=== PATIENT | female | born 1985 | race Caucasian/White ===

== ENCOUNTER 2021-02-20 | Outpatient (REF) | payer OTHER, MEDICAID, SELFPAY ==
[2021-02-20] VITALS (7 sets, daily range): BP systolic 97–129; BP diastolic 49–76; PULSE 64–99; RESP 17–19; TEMP 36.2–37.4; O2SAT 96–100; BMI 34.9
[2021-02-20 10:34] LABS: CSF Appearance Clear, Colorless; CSF Tube # 1
[2021-02-20 10:45] LABS: Glucose CSF 59 mg/dL; Total Protein CSF 26.6 mg/dL (15-45)
[2021-02-20 11:01] LABS: CSF Monos 4 %; Lymphocytes CSF 96 %
[2021-02-20 11:02] LABS: Appearance CSF CLEAR; CSF Tube # 3; Color CSF COLORLESS
[2021-02-20 11:08] LABS: Red Blood Cell CSF 0 MM*3; White Blood Cell CSF 20 MM*3
[2021-02-20 13:19] LABS: Oligoclonal Serum Yes
[2021-02-24 04:07] LABS: Albumin 3.8 g/dL (3.5-5.2); Albumin, CSF 11.1 mg/dL (8.0-42.0); IgG 838 mg/dL (600-1640); IgG Synthesis Rate 25.2 mg/24 h (-9.9-3.3); IgG, CSF 6.8 mg/dL (0.8-7.7)
== END 2021-02-20 00:01 | disposition home or self-care (01) ==
LOC: HO.MS
PROVIDERS: PCP Internal Medicine; Visit Provider Psychiatry & Neurology Neurology
PROC: 009U3ZZ Drainage of Spinal Canal, Percutaneous Approach (ICD-10-PCS; CPT 62270; principal; 2021-02-20 08:00)
DX: R29.90 Unspecified symptoms and signs involving the nervous system (principal); Z88.0 Allergy status to penicillin
CPT/HCPCS: 62270; 82042; 82945; 83916; 84157; 87015; 87070; 87205; 89051

== ENCOUNTER 2023-04-29 08:35 | Outpatient (REF) | payer OTHER, MEDICAID, SELFPAY | END 2023-04-29 08:36 | disposition home or self-care (01) | LOC: HO.HAP 08:35 | PROVIDERS: Visit Provider Internal Medicine | DX: Z46.1 Encounter for fitting and adjustment of hearing aid (principal); H90.3 Sensorineural hearing loss, bilateral | CPT/HCPCS: 99499 ==

== ENCOUNTER 2023-09-03 08:58 | Outpatient (REF) | payer OTHER, MEDICAID, SELFPAY ==
--- NOTE | 2023-09-04 08:04 | MHC.AU.HA3 ---
Hearing Instrument Follow-Up- Binaural Date of Visit: 09/03/23 Right Ear: Make, Model, Color, Serial Number: Ellen Whittingtona2Pro BTE SN: [id number] Color: [place] Brown Battery Size: 13 Earmold/Dome/CShell/SlimTip:Canal lock Dispensed By: [facility] Date of Fittin Left Ear: Make, Model, Color, Serial Number: Ellen Whittingtona2Pro BTE SN: [id number] Color: [place] Brown Battery Size: 13 Earmold/Dome/CShell/SlimTip: Canal lock Dispensed By: [facility] Date of Fittin Follow-Up Summary: Kylah reported that her right ear mold keeps sliding out of her ear. Tubing slightly too short, likely pulling on ear mold. Cleaned both hearing aids and ear molds. Microphones full of debris - cleaned/vacuumed. Replaced both tubes. Kylah also requested an increase in volume of the hearing aids. However, while making programming adjustments, the left hearing aid continually cut in and out. Confirmed via listening check. Right volume control also does not work. Discussed repair vs replace due to age. Kylah opted to send the left hearing aid for repair at this time. Quoted $385.00 due at cherry picker operator. Programmed loaner. Kylah is trying to fix her [place] [employer] insurance. Once that is settled, she will start the process for new hearing aids, starting with a doctor's order for an updated hearing test. Recommendations: Patient will be contacted when materials have arrived. Recommendations (Other): Will need appointment to transfer ear mold from loaner to repaired hearing aid and reconnect via Genie to right hearing aid. Will owe $385.00 at cherry picker operator Diagnosis Code(s): Primary Diagnosis: H90.3 Bilateral Sensorineural Hearing Loss Signature: Provider: Lucein Cisneros, [facility]
== END 2023-09-03 08:59 | disposition home or self-care (01) ==
LOC: HO.HAP 08:58
PROVIDERS: Visit Provider Internal Medicine
DX: Z13.89 Encounter for screening for other disorder (principal)

== ENCOUNTER 2023-10-06 09:31 | Outpatient (REF) | payer OTHER, MEDICAID, SELFPAY ==
[2023-10-06 10:18] LABS: Hematocrit 43.3 % (37.0-47.0); Hemoglobin 14.5 g/dl (12.0-16.0); Mean Corpuscular HGB Conc 33.5 g/dl (31.0-35.0); Mean Corpuscular Hemoglobin 28.2 pg (27.0-33.0); Mean Corpuscular Volume 84.2 fL (80.0-98.0); Mean Platelet Volume 8.9 fL (9.4-12.3); Platelet Count 310 X10*3/uL (160-400); Red Blood Count 5.14 X10*6/uL (4.20-5.50); Red Cell Distribution Width 13.2 % (11.0-16.0)
[2023-10-06 11:06] LABS: Alanine Aminotransferase 15 U/L (0-31); Alkaline Phosphatase 71 U/L (39-117); Aspartate Amino Transferase 16 U/L (5-31); Bilirubin Direct 0.1 mg/dL (0.0-0.5); Bilirubin Total 0.4 mg/dL (0.0-1.0); Total Protein 7.1 g/dL (6.5-8.0)
== END 2023-10-06 09:32 | disposition home or self-care (01) ==
LOC: HO.LAB 09:31
PROVIDERS: PCP Internal Medicine; Visit Provider Psychiatry & Neurology Neurology
DX: G35 Multiple sclerosis (principal)
CPT/HCPCS: 36415; 80076; 85027

== ENCOUNTER 2023-10-12 08:38 | Outpatient (REF) | payer OTHER, MEDICAID, SELFPAY | END 2023-10-12 08:39 | disposition home or self-care (01) | LOC: HO.HAP 08:38 | PROVIDERS: Visit Provider Internal Medicine | DX: Z46.1 Encounter for fitting and adjustment of hearing aid (principal); H90.3 Sensorineural hearing loss, bilateral | CPT/HCPCS: V5014 ==

== ENCOUNTER 2023-11-10 09:11 | Outpatient (REF) | payer OTHER, MEDICAID, SELFPAY ==
[2023-11-10 10:53] LABS: Hematocrit 42.7 % (37.0-47.0); Mean Corpuscular HGB Conc 32.8 g/dl (31.0-35.0); Mean Corpuscular Hemoglobin 28.3 pg (27.0-33.0); Mean Corpuscular Volume 86.4 fL (80.0-98.0); Mean Platelet Volume 9.6 fL (9.4-12.3); Platelet Count 357 X10*3/uL (160-400); Red Blood Count 4.94 X10*6/uL (4.20-5.50); Red Cell Distribution Width 13.4 % (11.0-16.0); White Blood Count 9.5 X10*3/uL (4.8-10.8)
[2023-11-10 11:57] LABS: Alanine Aminotransferase 23 U/L (0-31); Alkaline Phosphatase 67 U/L (39-117); Aspartate Amino Transferase 23 U/L (5-31); Bilirubin Direct 0.1 mg/dL (0.0-0.5); Bilirubin Total 0.4 mg/dL (0.0-1.0)
== END 2023-11-10 09:12 | disposition home or self-care (01) ==
LOC: HO.LAB 09:11
PROVIDERS: Visit Provider Psychiatry & Neurology Neurology
DX: G35 Multiple sclerosis (principal)
CPT/HCPCS: 36415; 80076; 85027

== ENCOUNTER 2024-03-25 08:20 | Outpatient (REF) | payer OTHER, MEDICAID, SELFPAY ==
--- NOTE | 2024-03-25 09:14 | MHC.AU.MED ---
Medical Clearance for Hearing Instrumentation Date: 03/25/24 Patient Name: Kylah Mix Date of : 1985 Primary Care Provider: Gary Beard MD We have seen your patient on 03/25/24 and have determined that they are a candidate for amplification (See accompanying report). Specifically, they would benefit from: Hearing aid use in both ears There is a statute that addresses Medical Evaluation Requirements prior to fitting a patient with a hearing aid. According to [place] statute [facility] CMR:6.03(1), (a) General. Except as provided in 265 CMR 6.03(1)(b), a shearing shed worker shall not sell a hearing aid unless the prospective user has presented to the shearing shed worker a written statement signed by a licensed physician that states that the patient's hearing loss has been medically evaluated and the patient may be considered a candidate for a hearing aid. The medical evaluation must have taken place within the preceding six months. Please note: Due to the [place] Statute referenced above, we cannot accept a signature other than that of a licensed physician. STAND GRINDER and PA signatures cannot be accepted. I am in agreement with the above recommendation. There is no medical contraindication for hearing instrumentation. Physician Signature Date Physician Name (Printed)
--- NOTE | 2024-03-25 10:30 | MHC.AU.HA1 ---
Hearing Aid Evaluation Date of Visit: 03/25/24 Historical Information: Description of Hearing: Moderately-severe sensorineural hearing loss, bilaterally Current personal amplification information: Oticon Aaws4Xtl BTEs fit in 2017 Summary: Kylah is ready to pursue new hearing aids due to the age of her current pair. She reported the right hearing aid has been intermittent and she gets excessive feedback from both hearing aids, likely due to loose fitting ear molds. Kylah is somewhat concerned about vanity but also wants to hear as best as she can. Discussed options including changing to RITE with power project management specialist/mold or staying with standard BTE, however, would recommend super power BTE. Given that Kylah sleeps with one hearing, she opted to continue with standard, battery-powered BTEs for durability. Showed demo of size/shape of Oticon Xceed SP BTE, which was acceptable to Kylah. Impressions taken, bilaterally, without incident (in hold drawer waiting for medical clearance). Hearing Aid Prescription: Based on the individual?s shared listening needs, communication environments, dexterity, desire for connectivity, and personal preferences, the following prescription for amplification has been made: Right ear: Make, Model, Color: Oticon Xceed 2 BTE SP Color: Chroma Biege Battery Size: 13 Type of Earmold/Dome/CShell/SlimTip: MicronSonic M45 Canal lock Left ear: Left ear prescription to be same as Right Hearing Aid above: Make, Model, Color: Oticon Xceed 2 BTE SP Color: Chroma Biege Battery Size: 13 Type of Earmold/Dome/CShell/SlimTip: MicronSonic M45 Canal lock Plan of Care: Patient wishes to purchase hearing aids as prescribed Action Taken/Action Needed: Medical Clearance to be requested from PCP/ENT. Hearing Instrument Fitting to be scheduled when materials arrive Primary Diagnosis: H90.3 Bilateral Sensorineural Hearing Loss Signature: Provider: Lucien Cisneros, [facility]
== END 2024-03-25 08:21 | disposition home or self-care (01) ==
LOC: HO.SH 08:20
PROVIDERS: Visit Provider Internal Medicine
DX: Z46.1 Encounter for fitting and adjustment of hearing aid (principal); H90.3 Sensorineural hearing loss, bilateral
CPT/HCPCS: 92557; 92591; V5275

== ENCOUNTER 2024-05-23 10:49 | Outpatient (REF) | payer OTHER, MEDICAID, SELFPAY ==
--- NOTE | 2024-05-23 12:37 | MHC.AU.HA2 ---
Hearing Instrument Fitting- Adult- Binaural Date of Visit: 05/23/24 Hearing Instruments Dispensed: Right Ear: Make, Model, Color, Serial Number: Otmaria e Martinez 2 AVAE SP SN: [id number] Color: Chroma Biege Acid Dipper Repair Warranty: 05/06/2027 Acid Dipper Loss and Damage Warranty: 05/06/2027 [facility] Service Plan: 05/23/2025 Battery Size: 13 Earmold/Dome/CShell/SlimTip: MicronSonic M45 Canal lock Left Ear: Make, Model, Color, Serial Number: Ellen Martinez 2 BTE SP SN: [id number] Color: Chroma Biege Acid Dipper Repair Warranty: 05/06/2027 Acid Dipper Loss and Damage Warranty: 05/06/2027 [facility] Service Plan: 05/23/2025 Battery Size: 13 Earmold/Dome/CShell/SlimTip: MicronSonic M45 Canal lock Summary of Fitting: Still visually occluding wax, bilaterally, right worse than left. Reportedly has not had time to follow up with PCP for cerumen removal as recommended at the hearing test. Ran feedback analyzer and real ear measures. Adjusted both hearing aids following left ear real ear; too much wax in right ear for probe. Although slight echo at real ear settings, sound quality otherwise comfortable - willing to acclimate. After real ear measures, [facility] observer helper unexpectedly shut down, unsure if real ear settings saved in hearing aids. Could not reconnect due to technical difficulties. However, Kylah did not notice any changes to sound quality. Some feedback on right side, likely related to wax. Kylah will schedule appointment with PCP for wax removal. Reviewed care and use. As a long-time hearing aid user, Kylah was familiar with general maintenance. Paired to cellphone and discussed lela - she will download at home if she chooses to use it. Kylah did not want to schedule a follow up at this time. She will call if any issues arise with fit/sound quality. *Kylah also noted that her insurance might be changing. Advised that first year of services are covered. Discussed wig-foi-usplmlh charges following first year. Recommended calling to update insurance information with front window cashier. Recommendations:Patient does not feel follow-up is necessary at this time. Diagnosis Code(s): Primary Diagnosis: H90.3 Bilateral Sensorineural Hearing Loss Signature: Provider: Lucien Cisneros, [facility]
== END 2024-05-23 10:50 | disposition home or self-care (01) ==
LOC: HO.HAP 10:49
PROVIDERS: Visit Provider Internal Medicine
DX: Z46.1 Encounter for fitting and adjustment of hearing aid (principal); H90.3 Sensorineural hearing loss, bilateral
CPT/HCPCS: V5011; V5020; V5160; V5261; V5264

== ENCOUNTER 2024-06-16 11:21 | Outpatient (REF) | payer OTHER, MEDICAID, SELFPAY ==
--- NOTE | 2024-06-16 13:52 | MHC.AU.HA3 ---
Hearing Instrument Follow-Up- Binaural Date of Visit: 06/16/24 Right Ear: Make, Model, Color, Serial Number: Otmaria e Xceed 2 AVAE SP SN: [id number] Color: Chroma Biege Circus Hand Repair Warranty: 05/06/2027 Circus Hand Loss and Damage Warranty: 05/06/2027 [facility] Service Plan: 05/23/2025 Battery Size: 13 Earmold/Dome/CShell/SlimTip:MicronSonic M45 Canal lock Dispensed By: [facility] Date of Fittin05/23/2024 Left Ear: Make, Model, Color, Serial Number: Otmaria e Xceed 2 BTE SP SN: [id number] Color: Chroma Biege Circus Hand Repair Warranty: 05/06/2027 Circus Hand Loss and Damage Warranty: 05/06/2027 [facility] Service Plan: 05/23/2025 Battery Size: 13 Earmold/Dome/CShell/SlimTip: MicronSonic M45 Canal lock Dispensed By: [facility] Date of Fittin05/23/2024 Follow-Up Summary: Earmolds causing discomfort, right worse than left. Has adapted to left mold. Right causing redness/sore at bottom of adriane, noted during otoscopy. Impression taken of right ear without incident - sent to [employer] for remake. Hearing aids also making crackling sound, has not noticed for past week but happened multiple times when first fit. Sound quality also intermittently robotic, mostly happens with her children's voices; however, has happened with other people as well. Decreased high frequencies slightly. Discussed programming loaners and sending hearing aids out for repair; however, Kylah opted to try hearing aids again with programming adjustments first. If issue persists, she will call ahead of time so loaners can be programmed and she will drop off the hearing aids to be sent out for repair. Otherwise, she will be contacted when her new right earmold arrives. Recommendations: Patient will be contacted when materials have arrived. Diagnosis Code(s): Primary Diagnosis: H90.3 Bilateral Sensorineural Hearing Loss Signature: Provider: Lucien Cisneros, [facility]
== END 2024-06-16 11:22 | disposition home or self-care (01) ==
LOC: HO.HAP 11:21
PROVIDERS: Visit Provider Internal Medicine
DX: Z13.89 Encounter for screening for other disorder (principal)

== ENCOUNTER 2024-06-21 12:56 | Outpatient (REF) | payer OTHER, MEDICAID, SELFPAY ==
[2024-06-21 13:13] LABS: MANUAL DIFF FLAG NO
[2024-06-21 13:59] LABS: Basophils Absolute Auto 0.1 X10*3/uL (0.0-0.2); Basophils Percent Auto 0.8 % (0-2); Eosinophils Absolute Auto 0.2 X10*3/uL (0.0-0.4); Eosinophils Percent Auto 2.3 % (0-4); Hematocrit 44.8 % (37.0-47.0); Hemoglobin 15.2 g/dl (12.0-16.0); Imm Gran Abs Auto 0.03 X10*3/uL (0.00-0.03); Imm Gran Pct Auto 0.5 % (0.0-0.4); Lymphocytes Absolute Auto 1.6 X10*3/uL (1.2-4.9); Lymphocytes Percent Auto 23.6 % (20-40); Mean Corpuscular HGB Conc 33.9 g/dl (31.0-35.0); Mean Corpuscular Hemoglobin 28.5 pg (27.0-33.0); Mean Corpuscular Volume 83.9 fL (80.0-98.0); Mean Platelet Volume 9.1 fL (9.4-12.3); Monocytes Absolute Auto 0.5 X10*3/uL (0.1-1.2); Monocytes Percent Auto 6.9 % (2-11); Neutrophils Absolute Auto 4.4 x10*3/uL (2.0-8.3); Neutrophils Percent Auto 65.9 % (45-73); Platelet Count 320 X10*3/uL (160-400); Red Blood Count 5.34 X10*6/uL (4.20-5.50); Red Cell Distribution Width 13.4 % (11.0-16.0); White Blood Count 6.7 X10*3/uL (4.8-10.8)
[2024-06-21 14:21] LABS: Alanine Aminotransferase 15 U/L (0-31); Albumin Level 4.1 g/dL (3.5-5.0); Alkaline Phosphatase 63 U/L (39-117); Aspartate Amino Transferase 15 U/L (5-31); Bilirubin Direct 0.2 mg/dL (0.0-0.5); Bilirubin Total 0.5 mg/dL (0.0-1.0); Total Protein 6.9 g/dL (6.5-8.0)
== END 2024-06-21 12:57 | disposition home or self-care (01) ==
LOC: HO.LAB 12:56
PROVIDERS: PCP Internal Medicine; Visit Provider Registered Nurse
DX: G35 Multiple sclerosis (principal)
CPT/HCPCS: 36415; 80076; 85025

== ENCOUNTER 2024-07-14 14:46 | Outpatient (REF) | payer OTHER, MEDICAID, SELFPAY ==
--- NOTE | 2024-07-14 17:02 | MHC.AU.HA3 ---
Hearing Instrument Follow-Up- Binaural Date of Visit: 07/14/24 Right Ear: Make, Model, Color, Serial Number: Oticon Xceed 2 BTE SP SN: [id number] Color: Chroma Biege Copy Lathe Operator Repair Warranty: 05/06/2027 Copy Lathe Operator Loss and Damage Warranty: 05/06/2027 [facility] Service Plan: 05/23/2025 Battery Size: 13 Earmold/Dome/CShell/SlimTip:MicronSonic M45 Canal lock Dispensed By: [facility] Date of Fittin05/23/2024 Left Ear: Make, Model, Color, Serial Number: Oticon Xceed 2 BTE SP SN: [id number] Color: Chroma Biege Copy Lathe Operator Repair Warranty: 05/06/2027 Copy Lathe Operator Loss and Damage Warranty: 05/06/2027 [facility] Service Plan: 05/23/2025 Battery Size: 13 Earmold/Dome/CShell/SlimTip: MicronSonic M45 Canal lock Dispensed By: [facility] Date of Fittin05/23/2024 Follow-Up Summary: Here to fruit or nut picker right EM remake; however, still having several issues with HAs and EMs. Right mold has been significantly more comfortable since modifications made at last appointment, will keep as backup. Fit new right ear mold, comfortable in office. Left earmold now reportedly causing same issue, significant discomfort at bottom of pinna, noted redness/indent during otoscopy. Cut/buffed left mold. Impression taken, without incident of left ear - Sent to [employer] for remake. Noted following issues with HAs 1. Still making crackling/static sound, happens randomly, lasts several seconds, unclear cause 2. Still perceives garbled/muffled sound quality of voices, happens only for a second, cannot pinpoint if related to certain phonemes, etc. 3. Left CLARK randomly turns off completely, needs to open and close battery door to restart it. Could not replicate any issues in office but [facility]. Programmed loaners. Even with loaners, Kylah reported issue #2 noted above was still occurring. Tried changing fitting algorithms, making multiple adjustments, Speech Rescue on and off, etc. all without improvement. Kylah was agreeable to using loaners as is for now. When HAs return from repair and new left EM arrives, 1 hr fitting appointment to be scheduled. Will need cerumen removal (opted to have cerumen removal here, self pay) then rerun real ear on both old and new HAs to compare responses. May need to call [facility] for support if issue with garbled/distorted speech does not resolve. Recommendations: Patient will be contacted when materials have arrived. Diagnosis Code(s): Primary Diagnosis: H90.3 Bilateral Sensorineural Hearing Loss Signature: Provider: Lucien Cisneros, [facility]
== END 2024-07-14 14:47 | disposition home or self-care (01) ==
LOC: HO.HAP 14:46
PROVIDERS: Visit Provider Internal Medicine
DX: Z13.89 Encounter for screening for other disorder (principal)

== ENCOUNTER 2024-09-01 10:30 | Outpatient (REF) | payer OTHER, MEDICAID, SELFPAY ==
[2024-09-01 11:06] LABS: MANUAL DIFF FLAG NO
[2024-09-01 11:37] LABS: Basophils Percent Auto 0.6 % (0-2); Eosinophils Absolute Auto 0.1 X10*3/uL (0.0-0.4); Eosinophils Percent Auto 2.2 % (0-4); Hematocrit 44.3 % (37.0-47.0); Hemoglobin 15.4 g/dl (12.0-16.0); Imm Gran Abs Auto 0.01 X10*3/uL (0.00-0.03); Imm Gran Pct Auto 0.2 % (0.0-0.4); Lymphocytes Absolute Auto 1.2 X10*3/uL (1.2-4.9); Lymphocytes Percent Auto 18.3 % (20-40); Mean Corpuscular HGB Conc 34.8 g/dl (31.0-35.0); Mean Corpuscular Hemoglobin 29.6 pg (27.0-33.0); Mean Corpuscular Volume 85.2 fL (80.0-98.0); Mean Platelet Volume 9.2 fL (9.4-12.3); Monocytes Absolute Auto 0.3 X10*3/uL (0.1-1.2); Monocytes Percent Auto 4.3 % (2-11); Neutrophils Absolute Auto 4.7 x10*3/uL (2.0-8.3); Neutrophils Percent Auto 74.4 % (45-73); Platelet Count 350 X10*3/uL (160-400); Red Cell Distribution Width 13.2 % (11.0-16.0); White Blood Count 6.3 X10*3/uL (4.8-10.8)
[2024-09-01 12:07] LABS: Alanine Aminotransferase 20 U/L (0-31); Albumin Level 4.1 g/dL (3.5-5.0); Alkaline Phosphatase 64 U/L (39-117); Aspartate Amino Transferase 21 U/L (5-31); Bilirubin Direct 0.1 mg/dL (0.0-0.5); Bilirubin Total 0.3 mg/dL (0.0-1.0); Total Protein 6.9 g/dL (6.5-8.0)
[2024-09-01 12:41] LABS: HBS Num1 2.84 mIU/mL (0-7.99); HBc Num1 0.17 S/CO (0.00-0.79); HBsAGNum1 0.41 S/CO (0.00-0.99); Hepatitis B Core Antibody Nonreactive (Nonreactive); Hepatitis B Surface Antigen Negative (Negative); ~Hepatitis B Surface Antibody NONREACTIVE (Nonreactive)
[2024-09-02 08:07] LABS: Immunoglobulin G 969 mg/dL (600-1640)
== END 2024-09-01 10:31 | disposition home or self-care (01) ==
LOC: HO.LAB 10:30
PROVIDERS: Visit Provider Registered Nurse
DX: G35 Multiple sclerosis (principal)
CPT/HCPCS: 36415; 80076; 82784; 85025; 86704; 86706; 87340

== ENCOUNTER 2024-09-08 12:38 | Outpatient (REF) | payer OTHER, MEDICAID, SELFPAY ==
--- NOTE | 2024-09-08 16:01 | MHC.AU.HA3 ---
Hearing Instrument Follow-Up- Binaural Date of Visit: 09/08/24 Right Ear: Make, Model, Color, Serial Number: Oticon Juan 2 BTE SP SN: [id number] Color: Chroma Biege Hand Binder Stripper Repair Warranty: 05/06/2027 Hand Binder Stripper Loss and Damage Warranty: 05/06/2027 [facility] Service Plan: 05/23/2025 Battery Size: 13 Earmold/Dome/CShell/SlimTip:MicronSonic M45 Canal lock Dispensed By: [facility] Date of Fittin05/23/2024 Left Ear: Make, Model, Color, Serial Number: Oticon Xceed 2 BTE SP SN: [id number] Color: Chroma Biege Hand Binder Stripper Repair Warranty: 05/06/2027 Hand Binder Stripper Loss and Damage Warranty: 05/06/2027 [facility] Service Plan: 05/23/2025 Battery Size: 13 Earmold/Dome/CShell/SlimTip: MicronSonic M45 Canal lock Dispensed By: [facility] Date of Fittin05/23/2024 Follow-Up Summary: Cerumen removal, AU, without incident. Returned loaners. Fit new left EM and repaired HAs. EMs still uncomfortable from canal locks. Cut canal locks shorter on both EMs. As far as sound quality, Kylah has noticed significant improvement in overall hearing compared to old HAs, hearing more sounds, understanding speech better. However, noticed the same issues with loaners as she did with original pair 1. HAs randomly turn off, need to open/close battery door to restart it, happens few times/week 2. Random robotic sound quality for a few seconds. Did not bring old HAs to match frequency response. Ran real ear on new HAs and adjusted to match target. Increased MPOs; however, still noticing random robotic sound. Called [facility] - Suggested moving Open Sound - Transition to Low and Transient Noise Management to Low. Did not have suggestion for HAs randomly turning on/off; however, made note in system if HAs come in for repair again they should be replaced. Kylah will try new settings and call if problems persist. Recommendations: Hearing instrument follow-up or maintenance as needed. Please contact our clinic with any questions or concerns. Patient will call if problems persist. Diagnosis Code(s): Primary Diagnosis: H90.3 Bilateral Sensorineural Hearing Loss Signature: Provider: Lucien Cisneros, [facility]
== END 2024-09-08 12:39 | disposition home or self-care (01) ==
LOC: HO.HAP 12:38
PROVIDERS: Visit Provider Internal Medicine
DX: Z13.89 Encounter for screening for other disorder (principal)

== ENCOUNTER 2024-09-08 13:35 | Outpatient (REF) | payer SELFPAY | END 2024-09-08 13:36 | disposition home or self-care (01) | LOC: HO.HAP 13:35 | PROVIDERS: Visit Provider Internal Medicine | DX: Z46.1 Encounter for fitting and adjustment of hearing aid (principal); H90.3 Sensorineural hearing loss, bilateral | CPT/HCPCS: 92700 ==

== ENCOUNTER 2024-11-10 08:29 | Outpatient (REF) | payer OTHER, MEDICAID, SELFPAY | END 2024-11-10 08:30 | disposition home or self-care (01) | LOC: HO.HAP 08:29 | PROVIDERS: Visit Provider Internal Medicine | DX: Z13.89 Encounter for screening for other disorder (principal) ==

== ENCOUNTER 2024-11-24 10:26 | Outpatient (REF) | payer OTHER, MEDICAID, SELFPAY | END 2024-11-24 10:27 | disposition home or self-care (01) | LOC: HO.HAP 10:26 | PROVIDERS: Visit Provider Internal Medicine | DX: Z46.1 Encounter for fitting and adjustment of hearing aid (principal); H90.3 Sensorineural hearing loss, bilateral | CPT/HCPCS: V5264 ==

== ENCOUNTER 2024-11-28 10:25 | Outpatient (REF) | payer OTHER, MEDICAID, SELFPAY ==
--- OUTSIDE RECORDS SUMMARY | 2024-11-28 15:08 | XMS_ITS | Encounter Summary ---
Author Organization [facility] Address [address] [place] [address] Care Team Providers Care Campus Police Officer Name Role Phone Ricardo Walls MD Primary Care Provider [phone] Gary Beard MD Primary Care Provider [phone] Reason for Visit * Reason Onset Date Comments TEST RESULTS 05/10/2019 Encounter Details Date Type Department Care Team Description 05/10/2019 Telephone OBGYN - [place] [address] [place] [id number] Verna Collins, RAE [address] [place] [address] TEST RESULTS Social History Tobacco Use Types Packs/Day Years Used Date Smoking Tobacco: Every Day Cigarettes 0.5 Started: 08/15/2001 Smokeless Tobacco: Never Alcohol Use Standard Drinks/Week Comments No 0 (1 standard drink = 0.6 oz pure alcohol) alcohol dependence, see note 12/2013, stopped alcohol in 10/2015 Sex Assigned at Date Recorded Not on file Job Start Date Occupation Industry Not on file Not on file Not on file documented as of this encounter Miscellaneous Notes * Telephone Encounter - Christina Lew - 05/11/2019 9:54 AM EDT Pt is looking for blood test results. * Telephone Encounter - Anna Saul - 05/10/2019 4:21 PM EDT Inform patient: ANY URGENT OR ABNORMAL RESULTS WIILL RESULT IN A CALL BACK TO THE PATIENT ANGEL. Type of test: :blood Date test was performed: 05/10/19 Where was the test performed: [facility] Who ordered this test?: Verna Collins Is the doctor here today?: YES Can the message wait until the doctor returns?: NO IF PATIENT'S PCP IS NOT IN INSTRUCT PATIENT THAT THEY WILL RECEIVE A CALL BACK WHEN THE PCP IS IN THE OFFICE NEXT. documented in this encounter Plan of Treatment Not on file documented as of this encounter Visit Diagnoses Not on filedocumented in this encounter Care Teams Campus Police Officer Relationship Specialty Start Date End Date Ricardo Walls MD [address] [place] [phone] PCP - General Internal Medicine 12/28/13 08/10/23 Gary Beard MD [address] [place] [phone] PCP - General Internal Medicine 08/11/23 documented as of this encounter
--- OUTSIDE RECORDS SUMMARY | 2024-11-28 15:08 | XMS_ITS | Encounter Summary ---
Author Organization [facility] Address [address] [place] [address] Care Team Providers Care Cable Television Technician Name Role Phone Ricardo Walls MD Primary Care Provider [phone] Gary Beard MD Primary Care Provider Encounter Details Date Type Department Care Team Description 01/07/2021 Personal Care Service Provider Report Medical Records [address] [place] [id number] Bishnu Tirado MD Social History Tobacco Use Types Packs/Day Years [...] on file documented as of this encounter Plan of Treatment Not on file documented as of this encounter Visit Diagnoses Not on filedocumented in this encounter Care Teams Cable Television Technician Relationship Specialty Start Date End Date Ricardo Walls MD [address] [place] [phone] PCP - General Internal Medicine 12/28/13 08/10/23 Gary Beard MD [address] [place] [address] PCP - General Internal Medicine 08/11/23 documented as of this encounter
--- OUTSIDE RECORDS SUMMARY | 2024-11-28 15:08 | XMS_ITS | Encounter Summary ---
Author Organization [facility] Address [address] [place] [address] Care Team Providers Care Drum Filler Name Role Phone Ricardo Walls MD Primary Care Provider [phone] Gary Beard MD Primary Care Provider [phone] Encounter Details Date Type Department Care Team Description 03/19/2016 Transfer Records Medical Records [address] [place] [id number] Abstract, Provider Social History Tobacco Use Types Packs/Day Years Used Date Smoking Tobacco: Every Day Cigarettes 0.5 Alcohol Use Standard Drinks/Week Comments No 0 [...] on filedocumented in this encounter Care Teams Drum Filler Relationship Specialty Start Date End Date Ricardo Walls MD [address] [place] [id number] PCP - General Internal Medicine 12/28/13 08/10/23 Gary Beard MD [address] [place] [phone] PCP - General Internal Medicine 08/11/23 documented as of this encounter
--- OUTSIDE RECORDS SUMMARY | 2024-11-28 15:08 | XMS_ITS | Encounter Summary ---
Author Organization [facility] Address [address] [place] [address] Care Team Providers Care Classification Inspector Name Role Phone Ricardo Walls MD Primary Care Provider [phone] Gary Beard MD Primary Care Provider [phone] Reason for Visit * Reason Onset Date Comments My Chart Appointment 11/19/2020 Encounter Details Date Type Department Care Team Description 11/19/2020 Telephone Adult Medicine [address] [phone] Ricardo Walls MD [address] [place] [address] [phone] My Chart Appointment Social History Tobacco Use Types Packs/Day Years [...] file Not on file Not on file COVID-19 Exposure Response Date Recorded In the last month, have you been in contact with someone who was confirmed or suspected to have Coronavirus / COVID-19? No / Unsure 11/21/2020 1:04 PM EST documented as of this encounter Miscellaneous Notes * Telephone Encounter - Giovanna Messina - 11/19/2020 7:55 AM EST Appointment For: Kylah Mix ([id number]) Visit Type: RETURN VIDEO VISIT (314) 11/19/2020 ?? 11:00 AM ??15 mins. ??Lisa Dyer PA-C ? ADULT MED [facility] Patient Comments: Been having tingling ( right side of my body whole side from armpit to my toes) documented in this encounter Plan of Treatment Not on file documented as of this encounter Visit Diagnoses Not on filedocumented in this encounter Care Teams Classification Inspector Relationship Specialty Start Date End Date Ricardo Walls MD [address] [place] [address] [phone] PCP - General Internal Medicine 12/28/13 08/10/23 Gary Beard MD [address] [place] [phone] PCP - General Internal Medicine 08/11/23 documented as of this encounter
--- OUTSIDE RECORDS SUMMARY | 2024-11-28 15:08 | XMS_ITS | Encounter Summary ---
Author Organization [facility] Address [address] [place] [address] Care Team Providers Care Lean Manufacturing Leader Name Role Phone Ricardo Walls MD Primary Care Provider [phone] Gary Beard MD Primary Care Provider [phone] Encounter Details Date Type Department Care Team Description 07/04/2016 Hospital Medical Records [address] [place] [address] Social History Tobacco Use Types Packs/Day Years [...] on filedocumented in this encounter Care Teams Lean Manufacturing Leader Relationship Specialty Start Date End Date Ricardo Walls MD [address] [place] [phone] PCP - General Internal Medicine 12/28/13 08/10/23 Gary Beard MD [address] [place] [id number] PCP - General Internal Medicine 08/11/23 documented as of this encounter
--- OUTSIDE RECORDS SUMMARY | 2024-11-28 15:08 | XMS_ITS | Encounter Summary ---
Author Organization [facility] Address [address] [place] [address] Care Team Providers Care Car Painter Name Role Phone Ricardo Walls MD Primary Care Provider [phone] Gary Beard MD Primary Care Provider [phone] Encounter Details Date Type Department Care Team Description 03/17/2022 Pt. Referral Request [facility] [address] [place] [address] Md Robel Social History Tobacco Use Types Packs/Day Years [...] on filedocumented in this encounter Care Teams Car Painter Relationship Specialty Start Date End Date Ricardo Walls MD [address] [place] [phone] PCP - General Internal Medicine 12/28/13 08/10/23 Gary Beard MD [address] [place] [address] PCP - General Internal Medicine 08/11/23 documented as of this encounter
--- OUTSIDE RECORDS SUMMARY | 2024-11-28 15:08 | XMS_ITS | Encounter Summary ---
Author Organization [facility] Address [address] [place] [address] Care Team Providers Care Supervisor Painting Department Name Role Phone Ricardo Walls MD Primary Care Provider Gary Beard MD Primary Care Provider [phone] Reason for Visit * Reason Comments E-prescribe Rx Request Encounter Details Date Type Department Care Team Description 04/06/2019 Refill OBGYN - [place] [address] [place] [address] Jeremías De Souza MD [address] [place], [place] [phone] E-prescribe Rx Request Social History Tobacco Use Types Packs/Day Years [...] * Telephone Encounter - Christina Lew - 04/06/2019 9:41 AM EDT Pt is trying to conceive and needs refills on prenatals only given 1 with no refills at last appointment. * Telephone Encounter - Carri Clarke - 04/06/2019 9:22 AM EDT This was filled last month at annual with no refills ,please review documented in this encounter Plan of Treatment Not on file documented as of this encounter Visit Diagnoses Diagnosis Encounter for gynecological examination without abnormal finding Routine gynecological examination documented in this encounter Care Teams Supervisor Painting Department Relationship Specialty Start Date End Date Ricardo Walls MD [address] [place] [phone] PCP - General Internal Medicine 12/28/13 08/10/23 Gary Beard MD [address] [place] [phone] PCP - General Internal Medicine 08/11/23 documented as of this encounter
--- OUTSIDE RECORDS SUMMARY | 2024-11-28 15:08 | XMS_ITS | Encounter Summary ---
Author Organization [facility] Address [address] [place] [address] Care Team Providers Care Trauma Registrar Name Role Phone Gary Beard MD Primary Care Provider [phone] Reason for Visit * Reason Onset Date Comments TEST RESULTS 08/20/2023 MRI Encounter Details Date Type Department Care Team Description 08/20/2023 Pt. Non Urgent Medical Question Adult Medicine [address] [address] Gary Beard MD [address] [place] [address] Social History Tobacco Use Types Packs/Day Years [...] Exposure Response Date Recorded In the last 10 days, have yo u been in contact with someone who was confirmed or suspected to have Coronavirus/COVID-19? No / Unsure 08/19/2023 8:23 AM EDT documented as of this encounter Miscellaneous Notes * Telephone Encounter - Melida Leal M.A. - 08/21/2023 7:43 AM EDTFrom: Kylah Mix To: Susana Beard Sent: 08/20/2023 6:43 PM EDT Subject: Mri results Can someone please read my mri results and tell me what this means. I don???t see the neurologist till Oct. thank you documented in this encounter Plan of Treatment Not on file documented as of this encounter Visit Diagnoses Not on filedocumented in this encounter Care Teams Trauma Registrar Relationship Specialty Start Date End Date Gary Beard MD [address] [place] [address] PCP - General Internal Medicine 08/11/23 documented as of this encounter
--- OUTSIDE RECORDS SUMMARY | 2024-11-28 15:08 | XMS_ITS | Encounter Summary ---
Author Organization [facility] Address [address] [place] [address] Care Team Providers Care Product Safety Specialist Name Role Phone Gary Beard MD Primary Care Provider [phone] Encounter Details Date Type Department Care Team Description 01/12/2024 Orders Only Medical Records [address] [place] [address] Social History Tobacco Use Types Packs/Day Years [...] on file documented as of this encounter Procedures Procedure Name Priority Date/Time Associated Diagnosis Comments OUTSIDE PATHOLOGY Routine 08/31/2020 OUTSIDE PATHOLOGY Routine 01/11/2020 OUTSIDE PAP SMEAR Routine 07/05/2019 documented in this encounter Results * OUTSIDE PATHOLOGY (08/31/2020) [facility] OUTSIDE LAB * OUTSIDE PATHOLOGY (01/11/2020) [facility] OUTSIDE LAB * OUTSIDE PAP SMEAR (07/05/2019) [facility] LAB documented in this encounter Visit Diagnoses Not on filedocumented in this encounter Care Teams Product Safety Specialist Relationship Specialty Start Date End Date Gary Beard MD [address] [place] [address] PCP - General Internal Medicine 08/11/23 documented as of this encounter
--- OUTSIDE RECORDS SUMMARY | 2024-11-28 15:08 | XMS_ITS | Encounter Summary ---
Author Organization [facility] Address [address] [place] [address] Care Team Providers Care Programmer Business Name Role Phone Ricardo Walls MD Primary Care Provider Gayr Beard MD Primary Care Provider [phone] Encounter Details Date Type Department Care Team Description 02/13/2021 Tile Finisher Report Medical Records [address] [place] [address] Bishnu Tirado MD Social History Tobacco Use [...] have Coronavirus / COVID-19? No / Unsure 01/16/2021 10:40 AM EDT documented as of this encounter Plan of Treatment Not on file documented as of this encounter Visit Diagnoses Not on filedocumented in this encounter Care Teams Programmer Business Relationship Specialty Start Date End Date Ricardo Walls MD [address] [place] [address] PCP - General Internal Medicine 12/28/13 08/10/23 Gary Beard MD [address] [place] [address] PCP - General Internal Medicine 08/11/23 documented as of this encounter
--- OUTSIDE RECORDS SUMMARY | 2024-11-28 15:08 | XMS_ITS | Encounter Summary ---
Author Organization [facility] Address [address] [place] [address] Care Team Providers Care Burglar Alarm Inspector Name Role Phone Ricardo Walls MD Primary Care Provider Gary Beard MD Primary Care Provider [phone] Encounter Details Date Type Department Care Team Description 05/01/2015 House Carpenter Report Medical Records [address] [place] [address] Shy Spear MD Social History Tobacco Use Types Packs/Day Years Used Date Smoking Tobacco: Every Day Cigarettes 0.5 Alcohol Use Standard Drinks/Week Comments No 0 (1 standard drink = 0.6 oz pure alcohol) alcohol dependence, see note 12/2013 Sex Assigned at Date Recorded Not on file Job Start Date Occupation Industry Not on file Not on file Not on file documented as of this encounter Plan of Treatment Not on file documented as of this encounter Visit Diagnoses Not on filedocumented in this encounter Care Teams Burglar Alarm Inspector Relationship Specialty Start Date End Date Ricardo Walls MD [address] [place] [address] PCP - General Internal Medicine 12/28/13 08/10/23 Gary Beard MD [address] [place] [address] PCP - General Internal Medicine 08/11/23 documented as of this encounter
--- OUTSIDE RECORDS SUMMARY | 2024-11-28 15:08 | XMS_ITS | Encounter Summary ---
Author Organization [facility] Address [address] [place] [address] Care Team Providers Care Auto Bench Mechanic Name Role Phone Ricardo Walls MD Primary Care Provider [phone] Gary Beard MD Primary Care Provider [phone] Encounter Details Date Type Department Care Team Description 06/13/2016 Orders Only OBGYN - [address] [address] Carmelita Greenberg I., RAE Social History Tobacco Use Types Packs/Day Years [...] on filedocumented in this encounter Care Teams Auto Bench Mechanic Relationship Specialty Start Date End Date Ricardo Walls MD [address] [place] [address] PCP - General Internal Medicine 12/28/13 08/10/23 Gary Beard MD [address] [place] [phone] PCP - General Internal Medicine 08/11/23 documented as of this encounter
--- OUTSIDE RECORDS SUMMARY | 2024-11-28 15:08 | XMS_ITS | Clinical Summary ---
Author Organization [facility] Address [address] [place] [address] Care Team Providers Care Scalping Machine Operator Name Role Phone Gary Beard MD Primary Care Provider Allergies Active Allergy Reactions Criticality Noted Date Comments Levofloxacin Swelling 01/05/2014 Penicillins Anaphylaxis High 03/10/2006 Medications Medication Sig Dispensed Refills Start Date End Date Status naltrexone microspheres (VIVITROL IM) Inject into the muscle. Active PNV,calcium 58-gpxr-cboxx acid ( Vitamin Plus Low Iron) 27 mg iron- 1 mg tablet TAKE 1 TABLET BY MOUTH EVERY DAY Active butalbital-acetaminop hen-caffeine (FIORICET, ESGIC) 50-325-40 mg per tablet TAKE 1 TABLET BY MOUTH EVERY 6 HOURS NEEDED FOR HEADACHE Active dimethyl fumarate 240 mg capsule,delayed release(DR/EC) Take 1 Capsule by mouth 2 times daily. Active salicylic acid 27.5 % film forming liquid w/appl Apply 1 Each topically 2 times daily. Soak lesion of right foot in warm water for 5 minutes. Dry area thoroughly. Apply to lesion of sole of right foot, allow to dry, and then apply a second time. Avoid contact with surrounding skin. Continue therapy once or twice daily. Resolution may be expected after 4 to 6 weeks Active Active Problems Problem Noted Date Diagnosed Date Paresthesia of upper extremity 08/12/2023 of unknown anatomic location 8 Overview (10/28/2024): Last Assessment & Plan: Reviewed findings from previous hCG and US. I explained these findings are not consistent with a normal and either represents an incomplete miscarriage or ectopic . I recommended repeat US today to ensure no evidence of now growing ectopic or in CS scar. She was counseled re: options if no findings on US including D&C to eval for POC vs methotrexate. She was not interested in a procedure and opted for methotrexate. We reviewed side effects and precautions to be taken after administration. We reviewed necessary follow up hCG on Thursday and Thursday (day 4 and 7) and she reports she is able to comply. She will haver her US in [place] and I will contact nursing there to administer once appropriate pre-administration labs have returned and US is reviewed. Handouts given about methotrexate. Wound dehiscence 08/05/2016 Known medical problems 06/12/2016 Overview (10/28/2024): Twice weekly testing 06/20: Category 1 NST at center Assessment & Plan (10/28/2024 12:40 PM EST): Poor growth Subchorionic hemorrhage in first trimester 12/12 Overview (10/28/2024): 12/07/2015 Single viable intrauterine . Small subchorionic hemorrhage. Follow up sono orderd Pure hypercholesterolemia 01/08/2015 Alcohol dependence 01/08/2015 Overview (10/28/2024): Last Assessment & Plan: She stopped alcohol use October 2016 with positive home test. Hearing loss 01/08/2015 Overview (10/28/2024): Since Last Assessment & Plan: Has bilateral hearing aids Immunizations Name Administration Dates Next Due Influenza, Unspecified 07/08/2023 Tdap Tetanus diptheria acell ular pertussis (Boostrix; Adacel) 7yo and older 10/24/2019,06/26/2016,01/08/2015 Surgical History Surgery Date Site/Laterality Comments TONSILLECTOMY ADENOIDECTOMY, BILATERAL MYRINGOTOMY AND TUBES PROCEDURE: IN TONSILLECTOMY & ADENOIDECTOMY <AGE 12; COMMENT: HISTORICAL SECTION 2009, 2015 PROCEDURE: HISTORICAL DELIVERY CHOLECYSTECTOMY 2009 PROCEDURE: LAPAROSCOPY, CHOLECYSTECTOMY Medical History Medical History Date Comments Nephritis and nephropathy, n ot specified as acute or chronic, with unspecified pathological lesion in kidney DX:Nephritis and nephropathy , not specified as acute or chronic, with unspecified pathological lesion in kidney; COMMENT: KIDNEY STONES Pure hypercholesterolemia 01/08/2015 DX:Pur e hypercholesterolemia Pure hypercholesterolemia 01/08/2015 DX:Pur e hypercholesterolemia Pure hypercholesterolemia 01/08/2015 DX:Pur e hypercholesterolemia EtOH dependence (CMS/HCC) DX:EtO H dependence (HCC); COMMENT: stopped then no remission resumed in . Recovery 2015 Morbid obesity with BMI of 4 0.0-44.9, adult (CMS/HCC) 01/31/2016 DX:Morbid obesity with BMI o f 40.0-44.9, adult (HCC); COMMENT: Needs anesthesia consult in early 3rd trimester Anxiety 01/03/2016 DX:Anxiety; COMM ENT: Has a therapist from [facility] in [facility]. Also for etoh Family History Medical History Relation Name Comments Other: thyroid cancer Father Other: limitted info Father's side Other: ANURYSM Maternal Grandmother AND M ATERL GRANDFATHER Hypertension Mother Melanoma Mother and other skin cancer Other: ETOH issues Mother's side Stroke Paternal Grandfather Lung cancer Paternal Grandmother Breast cancer Neg Hx Relation Name Status Comments Father Father's side Maternal Grandmother Mother Mother's side Paternal Grandfather Paternal Grandmother Social History Tobacco Use Types Packs/Day Years Used Date Smoking Tobacco: Every Day Cigarettes 0.5 23.3 Started: 08/15/2001 Smokeless Tobacco: Never Alcohol Use Standard Drinks/Week Comments No 0 (1 standard drink = 0.6 oz pur e alcohol) Sex and Gender Information Value Date Recorded Sex Assigned at Not on file Gender Identity Not on file Sexual Orientation Not on file Obstetrics History Last Filed Vital Signs Vital Sign Reading Time Taken Comments Blood Pressure 120/84 01/01/2024 8:01 AM EST Pulse 58 01/01/2024 8:01 AM EST Temperature - - Respiratory Rate - - Oxygen Saturation - - Inhaled Oxygen Concentration - - Weight 80.7 kg (178 lb) 01/01/2024 8:01 AM EST Height 149.9 cm (4' 11 ) 01/01/2024 8:01 AM EST Body Mass Index 35.95 01/01/2024 8:01 AM EST Plan of Treatment Upcoming Encounters Date Type Department Care Team (Late st Contact Info) Description 07/13/2025 3:00 PM EDT Office Visit Adult Medicine [address] [address] Gary Beard MD [facility] [place] [address] Health Maintenance Due Date Last Done Comments Breast Cancer Screening 1983 Pneumococcal Vaccine: Pediatrics (0 to 5 Years) and At-Risk Patients (6 to 64 Years) (1 of 2 - PCV) 1989 Hepatitis B Vaccines (1 of 3 - 19+ 3-dose series) 2002 Cervical Cancer Screening: HPV 01/24/2020 01/23/2015 Depression Screening 10/04/2022 Social Influencers of Health Screening 10/04/2022 COVID-19 Vaccine ( - 2023-2 5 season) 2024 12/28/2020, 11/30/2020 Influenza Vaccine (#1) 2024 07/08/2023 Cholesterol Screening (Lipid Panel) 01/10/2029 01/11/2024 DTaP,Tdap,and Td Vaccines (4 - Td or Tdap) 10/24/2029 10/24/2019, 06/26/2016, 01/08/2015 Hepatitis C Screening Completed 01/29/2015 HIV Screening Completed 12/20/2015 HIB Vaccines Aged Out No longer eligi ble based on patient's age to complete this topic HPV Vaccines Aged Out No longer eligi ble based on patient's age to complete this topic Hepatitis A Vaccines Aged Out No long er eligible based on patient's age to complete this topic IPV Vaccines Aged Out No longer eligi ble based on patient's age to complete this topic MMR Vaccines Aged Out No longer eligi ble based on patient's age to complete this topic Meningococcal ACWY Vaccine Aged Out N o longer eligible based on patient's age to complete this topic RSV Immunization Patients Under 20 months Aged Out No longer eligible b ased on patient's age to complete this topic Varicella Vaccines Aged Out No longer eligible based on patient's age to complete this topic Procedures Procedure Name Priority Date/Time Associated Diagnosis Comments LIPID PANEL Routine 01/11/2024 HIV SCREENING Routine 12/20/2015 HEPATITIS C SCREENING Routine 01/29/2015 HPV Routine 01/23/2015 from Last 3 Months or Most Recently Relevant to Health Maintenance Results * (ABNORMAL) Lipid panel (01/11/2024) [facility] LDL/HDL Ratio 4 0 - 4 Triglycerides 73 0 - 150 mg/dL Cholesterol 201(A) 0 - 200 mg/dL HDL 57 40 mg/dL LDL Cholesterol 130(A) 0 - 100 mg/dL Blood Venous blood specimen / Unknown Historical Provider LAB BLOOD ORDERAB LES * HIV Screening (12/20/2015) [facility] HIV Screening abstracted Historical Provider MD BARBARA SHEPARD E * Hepatitis C Screening (01/29/2015) [facility] Hepatitis C Screening abstracted Historical Provider MD BARBARA SHEPARD E * Cervical Cancer Screening: HPV (01/23/2015) [facility] Cervical Cancer Screening: HPV negative interpretation abstracted Historical Provider MD BARBARA Nguyen from Last 3 Months or Most Recently Relevant to Health Maintenance Care Teams Scalping Machine Operator Relationship Specialty Start Date End Date Gary Beard MD [address] [place] [address] PCP - General 08/11/23
--- OUTSIDE RECORDS SUMMARY | 2024-11-28 15:08 | XMS_ITS | Encounter Summary ---
Author Organization [facility] Address [address] [place] [address] Care Team Providers Care Patient Service Representative Name Role Phone Ricardo Walls MD Primary Care Provider [phone] Gary Beard MD Primary Care Provider [phone] Encounter Details Date Type Department Care Team Description 09/27/2019 Manager Retail Sales Report Medical Records [address] [place] [address] Social History Tobacco Use Types Packs/Day Years [...] on filedocumented in this encounter Care Teams Patient Service Representative Relationship Specialty Start Date End Date Ricardo Walls MD [address] [place] [address] PCP - General Internal Medicine 12/28/13 08/10/23 Gary Beard MD [address] [place] [address] PCP - General Internal Medicine 08/11/23 documented as of this encounter
--- OUTSIDE RECORDS SUMMARY | 2024-11-28 15:08 | XMS_ITS | Encounter Summary ---
Author Organization [facility] Address [address] [place] [address] Care Team Providers Care Shirt Operator Name Role Phone Ricardo Walls MD Primary Care Provider [phone] Gary Beard MD Primary Care Provider Encounter Details Date Type Department Care Team Description 03/06/2021 Windshield Repair Technician Report Medical Records [address] [place] [address] Bishnu Tirado MD Social History Tobacco Use [...] on filedocumented in this encounter Care Teams Shirt Operator Relationship Specialty Start Date End Date Ricardo Walls MD [address] [place] [address] PCP - General Internal Medicine 12/28/13 08/10/23 Gary Beard MD [address] [place] [phone] PCP - General Internal Medicine 08/11/23 documented as of this encounter
--- OUTSIDE RECORDS SUMMARY | 2024-11-28 15:08 | XMS_ITS | Encounter Summary ---
Author Organization [facility] Address [address] [place] [address] Care Team Providers Care Early Childhood Lead Teacher Name Role Phone Ricardo Walls MD Primary Care Provider [phone] Gary Beard MD Primary Care Provider [phone] Encounter Details Date Type Department Care Team Description 09/17/2017 Director Of Entertainment Report Medical Records [address] [place] [address] Social History Tobacco Use Types Packs/Day Years Used Date Smoking Tobacco: Every Day Cigarettes 0.5 Started: 08/15/2001 Alcohol Use Standard Drinks/Week Comments No 0 [...] on filedocumented in this encounter Care Teams Early Childhood Lead Teacher Relationship Specialty Start Date End Date Ricardo Walls MD [address] [place] [address] PCP - General Internal Medicine 12/28/13 08/10/23 Gary Beard MD [address] [place] [address] PCP - General Internal Medicine 08/11/23 documented as of this encounter
--- OUTSIDE RECORDS SUMMARY | 2024-11-28 15:09 | XMS_ITS | Encounter Summary ---
Author Organization [facility] Address [address] [place] [address] Care Team Providers Care Airline Managerial Supervisor Name Role Phone Ricardo Walls MD Primary Care Provider [phone] Gary Beard MD Primary Care Provider [phone] Encounter Details Date Type Department Care Team Description 09/15/2016 SCAN Medical Records [address] [place] [address] Abstract, Provider Social History Tobacco Use Types [...] on filedocumented in this encounter Care Teams Airline Managerial Supervisor Relationship Specialty Start Date End Date Ricardo Walls MD [address] [place] [address] PCP - General Internal Medicine 12/28/13 08/10/23 Gary Beard MD [address] [place] [address] PCP - General Internal Medicine 08/11/23 documented as of this encounter
== END 2024-11-28 10:26 | disposition home or self-care (01) ==
LOC: HO.HAP 10:25
PROVIDERS: Visit Provider Internal Medicine
DX: Z13.89 Encounter for screening for other disorder (principal)

== ENCOUNTER 2024-11-29 08:37 | Outpatient (REF) | payer OTHER, MEDICAID, SELFPAY ==
--- OUTSIDE RECORDS SUMMARY | 2024-11-29 08:56 | XMS_ITS | Encounter Summary ---
Author Organization [facility] Address [address] [place] [address] Care Team Providers Care Ultrasonic Welding Machine Operator Name Role Phone Gary Beard MD Primary Care Provider [phone] Encounter Details Date Type Department Care Team Description 10/05/2023 Yacht Rigger Report Medical Records [address] [place] [address] Bishnu Tirado MD Social History Tobacco Use [...] on filedocumented in this encounter Care Teams Ultrasonic Welding Machine Operator Relationship Specialty Start Date End Date Gary Beard MD [address] [place] [address] PCP - General Internal Medicine 08/11/23 documented as of this encounter
--- OUTSIDE RECORDS SUMMARY | 2024-11-29 08:57 | XMS_ITS | Encounter Summary ---
Author Organization [facility] Address [address] [place] [address] Care Team Providers Care Hair Preparer Name Role Phone Ricardo Walls MD Primary Care Provider [phone] Gary Beard MD Primary Care Provider [phone] Encounter Details Date Type Department Care Team Description 09/27/2019 Research Project Manager Report Medical Records [address] [place] [address] Social History Tobacco Use Types Packs/Day Years [...] on filedocumented in this encounter Care Teams Hair Preparer Relationship Specialty Start Date End Date Ricardo Walls MD [address] [place] [address] PCP - General Internal Medicine 12/28/13 08/10/23 Gary Beard MD [address] [place] [address] PCP - General Internal Medicine 08/11/23 documented as of this encounter
--- OUTSIDE RECORDS SUMMARY | 2024-11-29 08:57 | XMS_ITS | Encounter Summary ---
Author Organization [facility] Address [address] [place] [address] Care Team Providers Care Accounting Tutor Name Role Phone Gary Beard MD Primary Care Provider [phone] Encounter Details Date Type Department Care Team Description 01/12/2024 Orders Only Medical Records [address] [place] [address] Social History Tobacco Use Types Packs/Day Years [...] this encounter Results * OUTSIDE PATHOLOGY (08/31/2020) [facility] OUTSIDE LAB * OUTSIDE PATHOLOGY (01/11/2020) [facility] OUTSIDE LAB * OUTSIDE PAP SMEAR (07/05/2019) [facility] LAB documented in this encounter Visit Diagnoses Not on filedocumented in this encounter Care Teams Accounting Tutor Relationship Specialty Start Date End Date Gary Beard MD [address] [place] [address] PCP - General Internal Medicine 08/11/23 documented as of this encounter
--- OUTSIDE RECORDS SUMMARY | 2024-11-29 08:57 | XMS_ITS | Encounter Summary ---
Author Organization [facility] Address [address] [place] [address] Care Team Providers Care Cemetery Workers Supervisor Name Role Phone Ricardo Walls MD Primary Care Provider Gary Beard MD Primary Care Provider [phone] Reason for Visit * Reason Onset Date Comments Appointment Cancelled 03/29/2021 Encounter Details Date Type Department Care Team Description 03/29/2021 Telephone Physiatry - [address] [address] Austen Joseph DO Appointment Cancelled Social History Tobacco Use Types Packs/Day Years [...] encounter Miscellaneous Notes * Telephone Encounter - Amanda Franco - 03/29/2021 12:14 PM EDT Patient was referred to physiatry. Reason for referral: neck pain, numbness/tingling FYI- patient no showed her appointment on 03/[address] Joseph. Was able to reach patient on 03/29 and she stated she has an appt with neurologist and will follow up with us after if needed documented in this encounter Plan of Treatment Not on file documented as of this encounter Visit Diagnoses Not on filedocumented in this encounter Care Teams Cemetery Workers Supervisor Relationship Specialty Start Date End Date Ricardo Walls MD [address] [place] [address] PCP - General Internal Medicine 12/28/13 08/10/23 Gary Beard MD [address] [place] [address] PCP - General Internal Medicine 08/11/23 documented as of this encounter
--- OUTSIDE RECORDS SUMMARY | 2024-11-29 08:57 | XMS_ITS | Clinical Summary ---
Author Organization [facility] Address [address] [place] [address] Care Team Providers Care Recordist Name Role Phone Gary Beard MD Primary Care Provider Allergies Active Allergy Reactions Criticality Noted Date Comments Levofloxacin Swelling 01/05/2014 Penicillins Anaphylaxis High 03/10/2006 Medications Medication Sig Dispensed Refills Start Date End Date Status naltrexone microspheres (VIVITROL IM) Inject into the muscle. Active PNV,calcium 58-nqpd-teyiz acid ( Vitamin Plus Low Iron) 27 [...] comply. She will haver her US in [place] and I will contact nursing there to [...] TONSILLECTOMY ADENOIDECTOMY, BILATERAL MYRINGOTOMY AND TUBES PROCEDURE: NE TONSILLECTOMY & ADENOIDECTOMY <AGE 10; COMMENT: HISTORICAL [...] COMM ENT: Has a therapist from [facility] in [facility]. Also for etoh Family History Medical History [...] 3:00 PM EDT Office Visit Adult Medicine [address] [phone] Gary Beard MD [facility] [place] [address] Health Maintenance Due Date Last Done Comments [...] Maintenance Results * (ABNORMAL) Lipid panel (01/11/2024) [facility] LDL/HDL Ratio 4 0 - 4 Triglycerides 73 0 - 150 mg/dL Cholesterol 201(A) 0 - 200 mg/dL HDL 57 40 mg/dL LDL Cholesterol 130(A) 0 - 100 mg/dL Blood Venous blood specimen / Unknown Historical Provider LAB BLOOD ORDERAB LES * HIV Screening (12/20/2015) [facility] HIV Screening abstracted Historical Provider MD BARBARA SHEPARD E * Hepatitis C Screening (01/29/2015) [facility] Hepatitis C Screening abstracted Historical Provider MD BARBARA SHEPARD E * Cervical Cancer Screening: HPV (01/23/2015) [facility] Cervical Cancer Screening: HPV negative interpretation abstracted Historical Provider MD BARBARA Nguyen from Last 3 Months or Most Recently Relevant to Health Maintenance Care Teams Recordist Relationship Specialty Start Date End Date Gary Beard MD [address] [place] [address] PCP - General 08/11/23
--- OUTSIDE RECORDS SUMMARY | 2024-11-29 08:57 | XMS_ITS | Encounter Summary ---
Author Organization [facility] Address [address] [place] [address] Care Team Providers Care Certified Master Safe Technician Name Role Phone Ricardo Walls MD Primary Care Provider [phone] Gary Beard MD Primary Care Provider [phone] Encounter Details Date Type Department Care Team Description 03/19/2016 Transfer Records Medical Records [address] [place] [address] Abstract, Provider Social History Tobacco Use Types [...] on filedocumented in this encounter Care Teams Certified Master Safe Technician Relationship Specialty Start Date End Date Ricardo Walls MD [address] [place] [address] PCP - General Internal Medicine 12/28/13 08/10/23 Gary Beard MD [address] [place] [address] PCP - General Internal Medicine 08/11/23 documented as of this encounter
--- OUTSIDE RECORDS SUMMARY | 2024-11-29 08:57 | XMS_ITS | Encounter Summary ---
Author Organization [facility] Address [address] [place] [address] Care Team Providers Care Linotype Operator Name Role Phone Ricardo Walls MD Primary Care Provider [phone] Gary Beard MD Primary Care Provider [phone] Encounter Details Date Type Department Care Team Description 09/17/2017 Financial Advocate Report Medical Records [address] [place] [address] Social History Tobacco Use Types Packs/Day Years [...] on filedocumented in this encounter Care Teams Linotype Operator Relationship Specialty Start Date End Date Ricardo Walls MD [address] [place] [address] PCP - General Internal Medicine 12/28/13 08/10/23 Gary Beard MD [address] [place] [address] PCP - General Internal Medicine 08/11/23 documented as of this encounter
--- OUTSIDE RECORDS SUMMARY | 2024-11-29 08:57 | XMS_ITS | Clinical Summary ---
Author Organization [facility] Address [address] [place] [address] Care Team Providers Care Bullet Swaging Machine Adjuster Name Role Phone Gary Beard MD Primary Care Provider [phone] Allergies Active Allergy Reactions Severity Noted Date Comments Levofloxacin Hemihydrate Swelling/Edema 014 Penicillins Anaphylaxis High 03/10/2006 Medications Medication Sig Dispensed Refills Start Date End Date Status Naltrexone (VIVITROL IM) Inject into the muscle. 0 Active Vit-Fe Fumarate-FA ( VITAMIN PLUS LOW IRON) 27-1 MG TabIndications:Encou nter for gynecological examination without abnormal finding TAKE 1 TABLET BY MOUTH EVERY DAY 30 Tab 11 04/06/2019 Active Dimethyl Fumarate 240 MG CAPSULE DELAYED RELEASE Take 1 Capsule by mouth 2 times daily. 0 01/01/2024 Active Salicylic Acid 27.5 % Liquid Apply 1 Each topically 2 times daily. Soak lesion of right foot in warm water for 5 minutes. Dry area thoroughly. Apply to lesion of sole of right foot, allow to dry, and then apply a second time. Avoid contact with surrounding skin. Continue therapy once or twice daily. Resolution may be expected after 4 to 6 weeks 10 mL 0 01/01/2024 Active HBISVALMFA-DXCP-VTHZ EINE 50-325-40 MG OR TABS (FIORICET, ESGIC) per tablet TAKE 1 TABLET BY MOUTH EVERY 6 HOURS NEEDED FOR HEADACHE 48 Tablet 0 03/15/2024 Active Active Problems Patient Care Coordination No te Formatting of this note migh t be different from the original. 1. [facility] site: [place] 2. Delivery site: [facility] 3. Dating criteria: LMP confirmed by 1st trimester ultrasound 3. Blood type: A positive 4. Genetic screening: Date: Result: 5. GBS: Date: 6. FOB name: Redd 7. Plans A. Epidural or other pain management - B. Labor support identified - C. Tdap - Date: D. Breast or Bottle feed: E. Baby's name - F. Circumcision - Problem Noted Date Paresthesia of upper extremity 3 of unknown anatomic location 0 06/30/2018 Last Assessment & Plan: Reviewed findings from [...] comply. She will haver her US in [place] and I will contact nursing there to administer once appropriate pre-administration labs have returned and US is reviewed. Handouts given about methotrexate. Wound dehiscence 08/05/2016 Poor growth 06/12/2016 Overview: Twice weekly testing 06/20: Category 1 NST at center Tobacco use 01/03/2016 Overview: Half pack a day. Discussed smoking cessation. Subchorionic hemorrhage in first trimest er 12/12/2015 Overview: 12/07/2015 Single viable intrauterine . Small subchorionic hemorrhage. Follow up sono orderd H/O section 12/06/2015 Overview: Primary c/s in 2009 at [facility]: For breech Op note requested 01/31/2016 and received March 17, 2016: GELYJ reviewed and incision on uterus is LTCS (Note patient had different last name of [place]) Alcohol dependence 01/08/2015 Last Assessment & Plan: She stopped alcohol use October 2016 with positive home test. Pure hypercholesterolemia 01/08/2015 Hearing loss 01/08/2015 Overview: Since Last Assessment & Plan: Has bilateral hearing aids Resolved Problems Problem Noted Date Resolved Date cardiac echogenic focus 03/03/2016 Overview: 03/03/2016 Left ventrcle, follow up sono at [facility] in 2 weeks 03/14/16 Pt declines invasive testing Morbid obesity with BMI of 40.0-44.9, adult 01/0209/08/2016 Overview: Needs anesthesia consult in early 3rd trimester Anxiety 01/03/2016 09/08/2016 Overview: Has a therapist from [facility] in [facility]. Also for etoh Supervision of other normal , antepartu m 12/20/2015 09/08/2016 Overview: Group B Strep negative Last Assessment & Plan: 1. [facility] site: [place] 2. Delivery site: [facility] 3. Dating criteria: LMP confirmed by 1st trimester ultrasound 3. Blood type: Unknown 4. Genetic screening: Date: Result: 5. GBS: Date: 6. FOB name: 7. Plans A. Epidural or other pain management - B. Labor support identified - C. Tdap - Date: D. Breast or Bottle feed: breast E. Baby's name - F. Circumcision - Immunizations Name Administration Dates Next Due COVID-19 (Moderna) 12/28/2020,11/30/2020 Influenza Flu (PT Reported) 07/08/2023 Tdap 10/24/2019,06/26/2016,01/08/2015 Family History Medical History Relation Name Comments thyroid cancer Father limitted info Father's side ANURYSM Maternal Grandmother AND MAT ERL GRANDFATHER Hypertension Mother Melanoma Mother and other skin cancer ETOH issues Mother's side Stroke Paternal Grandfather CA Lung Paternal Grandmother CA Breast Negative Hx Relation Name Status Comments Father Father's side Maternal Grandmother Mother Mother's side Paternal Grandfather Paternal Grandmother Social History Tobacco Use Types Packs/Day Years Used Date Smoking Tobacco: Every Day Cigarettes 0.5 Started: 08/15/2001 Smokeless Tobacco: Never Tobacco Cessation:Ready to Q uit: Not Asked; Counseling Given: Not Answered Alcohol Use Standard Drinks/Week Comments No 0 (1 standard drink = 0.6 oz pure alcohol) alcohol dependence, see note 12/2013, stopped alcohol in 10/2015 Sex Assigned at Date Recorded Not on file Job Start Date Occupation Industry Not on file Not on file Not on file Last Filed Vital Signs Vital Sign Reading Time Taken Comments Blood Pressure 120/84 01/01/2024 8:01 AM EST Pulse 58 01/01/2024 8:01 AM EST Temperature 34.6 ??C (94.3 ??F) 01/01/2024 8:01 AM ES T Respiratory Rate 12 08/12/2023 12:00 PM EDT Oxygen Saturation 99% 10/09/2016 10:52 AM EST Inhaled Oxygen Concentration - - Weight 80.7 kg (178 lb) 01/01/2024 8:01 AM EST Height 149.9 cm (4' 11 ) 01/01/2024 8:01 AM EST Body Mass Index 35.95 01/01/2024 8:01 AM EST Plan of Treatment Health Maintenance Due Date Last Done Comments MAMMOGRAM 2023 Covid-19 Vaccine (2022-12 4 season) 2024 12/28/2020, 11/30/2020 INFLUENZA (#1) 2024 07/08/2023, 08/02 (Refused) CERVICAL CANCER SCREENING 07/05/20242018, 04/25/2015, 12/13/2007, Additional history exists BMI CHECK/ADVISE 11/02/2024 01/01/2024, 11/2023 (Completed), 08/12/2023, Additional history exists DEPRESSION SCREENING/FOLLOWUP 11/02/2024 (Completed), 03/07/2019, 03/07/2019 (Completed), Additional history exists SOCIAL NEEDS SCREENING 11/02/2024 (Completed), 03/07/2019 (Completed), 03/07/2019 TOBACCO CHECK/ADVISE 12/31/2025 01/01/2024 (Completed), 03/07/2019 (Completed) BASELINE HEALTH EXAM 40-64 01/10/202601/10, 01/01/2024, 05/10/2019, Additional history exists CHOLESTEROL SCREENING 01/10/2029 01/11/2024 , 01/10/2015, 07/27/1999, Additional history exists DTAP/TDAP/TD (4 - Td or Tdap) 10/24/2029, 06/26/2016, 01/08/2015 PNEUMOCOCCAL VACCINE FOR HIG H RISK PATIENTS (#1) 02/20/2048 Care Teams Bullet Swaging Machine Adjuster Relationship Specialty Start Date End Date Gary Beard MD [address] [place] [address] PCP - General Internal Medicine 08/11/23
--- OUTSIDE RECORDS SUMMARY | 2024-11-29 08:57 | XMS_ITS | Encounter Summary ---
Author Organization [facility] Address [address] [place] [address] Care Team Providers Care Group Worker Name Role Phone Ricardo Walls MD Primary Care Provider [phone] Gary Beard MD Primary Care Provider [phone] Encounter Details Date Type Department Care Team Description 07/04/2016 Hospital Medical Records [address] [place] [address] Social History Tobacco Use Types Packs/Day Years [...] on filedocumented in this encounter Care Teams Group Worker Relationship Specialty Start Date End Date Ricardo Walls MD [address] [place] [address] PCP - General Internal Medicine 12/28/13 08/10/23 Gary Beard MD [address] [place] [address] PCP - General Internal Medicine 08/11/23 documented as of this encounter
--- OUTSIDE RECORDS SUMMARY | 2024-11-29 08:57 | XMS_ITS | Encounter Summary ---
Author Organization [facility] Address [address] [place] [address] Care Team Providers Care Home Hospice Aide Name Role Phone Jannet Uribe MD Primary Care Provider [phone] Ricardo Walls MD Primary Care Provider [phone] Gary Beard MD Primary Care Provider [phone] Encounter Details Date Type Department Care Team Description 07/30/2005 Orders Only OBGYN - [place] [address] [place] [address] Drea Koch CNM IRREGULAR MENSTRUAL CYCLE (Primary Dx) Social History Tobacco Use Types Packs/Day Years Used Date Smoking Tobacco: Never Assessed Sex Assigned at Date Recorded Not on file Job Start Date Occupation Industry Not on file Not on file Not on file documented as of this encounter Plan of Treatment Scheduled Orders Name Type Priority Associated Diagnoses Orde r Schedule VENIPUNCTURE Lab Routine Irregular Menstrual Cycle Ordered: 07/30/2005 documented as of this encounter Procedures Procedure Name Priority Date/Time Associated Diagnosis Comments CHG ASSAY OF THYROID STIMULATING HORMONE TSH Routine 07/30/2005 2:39 PM EDT Irregular Menstrual Cycle documented in this encounter Results * THYROID STIMULATING HORMONE (07/30/2005 2:39 PM EDT) TSH 0.96 0.40 - 4.00 uIU/ml [facility] 07/30/2005 2:39 PM EDT 07/30/2005 2:39 PM EDT Drea Koch CNM LAB [facility] documented in this encounter Visit Diagnoses Diagnosis Irregular menstrual cycle- Primary documented in this encounter Care Teams Home Hospice Aide Relationship Specialty Start Date End Date Jannet Uribe MD [address] [place] [address] [id number] PCP - General 04/18/03 12/27/13 Ricardo Walls MD [address] [place] [address] [phone] PCP - General Internal Medicine 12/28/13 08/10/23 Gary Beard MD [address] [place] [address] [phone] PCP - General Internal Medicine 08/11/23 documented as of this encounter
--- OUTSIDE RECORDS SUMMARY | 2024-11-29 08:57 | XMS_ITS | Encounter Summary ---
Author Organization [facility] Address [address] [place] [address] Care Team Providers Care Armament Aircraft Mechanic Name Role Phone Ricardo Walls MD Primary Care Provider [phone] Gary Beard MD Primary Care Provider [phone] Encounter Details Date Type Department Care Team Description 06/13/2016 Orders Only OBGYN - [address] [address] Carmelita Greenberg I., RAE Social History Tobacco [...] on filedocumented in this encounter Care Teams Armament Aircraft Mechanic Relationship Specialty Start Date End Date Ricardo Walls MD [address] [place] [address] PCP - General Internal Medicine 12/28/13 08/10/23 Gary Beard MD [address] [place] [address] [phone] PCP - General Internal Medicine 08/11/23 documented as of this encounter
--- OUTSIDE RECORDS SUMMARY | 2024-11-29 08:57 | XMS_ITS | Encounter Summary ---
Author Organization [facility] Address [address] [place] [address] Care Team Providers Care Bowling Ball Mold Assembler Name Role Phone Gary Beard MD Primary Care Provider Reason for Visit * Reason Onset Date Comments TEST RESULTS 08/20/2023 MRI Encounter Details Date Type Department Care Team Description 08/20/2023 Pt. Non Urgent Medical Question Adult Medicine [address] [address] Gary Beard MD [address] [place] [address] Social History Tobacco Use Types Packs/Day Years [...] on filedocumented in this encounter Care Teams Bowling Ball Mold Assembler Relationship Specialty Start Date End Date Gary Beard MD [address] [place] [phone] PCP - General Internal Medicine 08/11/23 documented as of this encounter
--- OUTSIDE RECORDS SUMMARY | 2024-11-29 08:57 | XMS_ITS | Encounter Summary ---
Author Organization [facility] Address [address] [place] [address] Care Team Providers Care Dry Cleaning Machine Operator Helper Name Role Phone Ricardo Walls MD Primary Care Provider [phone] Gary Beard MD Primary Care Provider [phone] Reason for Visit * Reason Onset Date Comments Faxed Order 03/14/2015 Encounter Details Date Type Department Care Team Description 03/14/2015 Telephone Adult Medicine [address] [phone] Ricardo Walls MD [address] [place] [address] [phone] Faxed Order Social History Tobacco Use Types Packs/Day Years [...] encounter Miscellaneous Notes * Telephone Encounter - Nereyda Brantley - 03/14/2015 10:44 AM EDT Order for Dr Walls's signature documented in this encounter Plan of Treatment Not on file documented as of this encounter Visit Diagnoses Not on filedocumented in this encounter Care Teams Dry Cleaning Machine Operator Helper Relationship Specialty Start Date End Date Ricardo Walls MD [address] [place] [address] PCP - General Internal Medicine 12/28/13 08/10/23 Gary Beard MD [address] [place] [address] PCP - General Internal Medicine 08/11/23 documented as of this encounter
--- OUTSIDE RECORDS SUMMARY | 2024-11-29 08:57 | XMS_ITS | Encounter Summary ---
Author Organization [facility] Address [address] [place] [address] Care Team Providers Care Passenger Agent Name Role Phone Gary Beard MD Primary Care Provider [phone] Encounter Details Date Type Department Care Team Description 03/25/2024 Wastewater Technician Report Medical Records [address] [place] [address] [facility] Social History Tobacco Use Types Packs/Day Years [...] on filedocumented in this encounter Care Teams Passenger Agent Relationship Specialty Start Date End Date Gary Beard MD [address] [place] [address] PCP - General Internal Medicine 08/11/23 documented as of this encounter
--- OUTSIDE RECORDS SUMMARY | 2024-11-29 08:57 | XMS_ITS | Encounter Summary ---
Author Organization [facility] Address [address] [place] [address] Care Team Providers Care Digital X Ray Service Engineer Name Role Phone Ricardo Walls MD Primary Care Provider [phone] Gary Beard MD Primary Care Provider [phone] Reason for Visit * Reason Comments E-prescribe Rx Request Encounter Details Date Type Department Care Team Description 04/06/2019 Refill OBGYN - [place] [address] [place] [address] Jeremías De Souza MD [address] [place], [place] [phone] E-prescribe Rx Request Social History Tobacco Use [...] examination documented in this encounter Care Teams Digital X Ray Service Engineer Relationship Specialty Start Date End Date Ricardo Walls MD [address] [place] [address] PCP - General Internal Medicine 12/28/13 08/10/23 Gary Beard MD [address] [place] [phone] PCP - General Internal Medicine 08/11/23 documented as of this encounter
--- OUTSIDE RECORDS SUMMARY | 2024-11-29 08:57 | XMS_ITS | Encounter Summary ---
Author Organization [facility] Address [address] [place] [address] Care Team Providers Care Steam Turbine Assembler Name Role Phone Ricardo Walls MD Primary Care Provider [phone] Gary Beard MD Primary Care Provider [phone] Encounter Details Date Type Department Care Team Description 12/21/2016 Release of Information Medical Records [address] [place] [id number] Abstract, Provider Social History Tobacco Use Types [...] on filedocumented in this encounter Care Teams Steam Turbine Assembler Relationship Specialty Start Date End Date Ricardo Walls MD [address] [place] [address] PCP - General Internal Medicine 12/28/13 08/10/23 Gary Beard MD [address] [place] [phone] PCP - General Internal Medicine 08/11/23 documented as of this encounter
--- OUTSIDE RECORDS SUMMARY | 2024-11-29 08:57 | XMS_ITS | Encounter Summary ---
Author Organization [facility] Address [address] [place] [address] Care Team Providers Care Financial Systems Director Name Role Phone Ricardo Walls MD Primary Care Provider [phone] Gary Beard MD Primary Care Provider [phone] Reason for Referral * EXTERNAL (Routine) - Authorized/Booked Specialty Diagnoses / Procedures Referred By Contact Referred To Contact Otolaryngology / Hearing Procedures REFERRAL TO HEARING TEST Ricardo Walls MD [address] [place] [address] [facility], [address] [address] Referral ID Status Reason Start Date Expiration Date V isits Requested Visits Authorized SEE NOTE Authorized/B ooked 11/09/2018 02/07/2019 1 1 Reason for Visit * Reason Onset Date Comments Second Operator Feedback 11/09/2018 [facility] Encounter Details Date Type Department Care Team Description 11/09/2018 Telephone Adult Medicine [address] [phone] Ricardo Walls MD [address] [place] [phone] Second Operator Feedback ([facility]) Social History Tobacco Use Types Packs/Day Years [...] encounter Miscellaneous Notes * Telephone Encounter - Priscilla Bullock - 11/09/2018 11:51 AM EST Please review this patients new referral request. The referral has been pended. Please complete thefollowing: If approved> sign order If denied>please give instructions and route to your practice nursing pool. Practice nurse should inform referrals and the patient if denied. * Telephone Encounter - Nereyda Brantley - 11/09/2018 11:36 AM EST What insurance does the patient have today? [facility] Effective 08/02/09: [employer] will not retro referral requests over 90 days. If request is for this please instruct patient to call the 800# on their insurance card to appeal. Do not submit a request. Referrals cannot be processed if the insurance is not accurate. If the insurance listed above in red is NO BILLING INFORMATION FOUND FOR THIS ENCOUTNER The patients correct insurance must be obtained and registered in [facility] or their referral can not be processed. Is this a retro request? NO. If yes for what date of service do you need the retro referral? N/A Who is calling to request this referral? patient If the caller is not the patient, what is their name? N/A Ask the patient WHO referred them to this specialty: Patient self referred FIRST and LAST NAME of SPECIALIST PATIENT is seeing: Dr Linda Schultz What specialty is this? Audiology DIAGNOSIS Patient is being seen for (Not a body part or a procedure): hard of hearing Have you seen this SPECIALIST for this PROBLEM/DX before? no If YES, when: Have you checked REVIEW or the APPT DESK to see if this referral has already been done or has visits left? YES Is this visit:Initial Visit Address of Specialist: [facility] [address] (patient does not know the # of [address] address, it could be [address] she is unsure) Phone # of Specialist: [phone] Fax #: (if applicable): [phone] Does patient have an appointment scheduled?: NO, patient was informed no appointment can be scheduled until they have referral, patient needs this appointment amanda as she needs to have a hearing testdone before she can have her hearing aid fixed Date of appointment- (including a retro-request): see above Is this appointment related to: Not MVA, WC or Surgery related * Telephone Encounter - Chloe Bullock - 11/09/2018 11:27 AM EST documented in this encounter Plan of Treatment Not on file documented as of this encounter Visit Diagnoses Not on filedocumented in this encounter Care Teams Financial Systems Director Relationship Specialty Start Date End Date Ricardo Walls MD [address] [place] [address] PCP - General Internal Medicine 12/28/13 08/10/23 Gary Beard MD [address] [place] [phone] PCP - General Internal Medicine 08/11/23 documented as of this encounter
--- OUTSIDE RECORDS SUMMARY | 2024-11-29 08:57 | XMS_ITS | Encounter Summary ---
Author Organization [facility] Address [address] [place] [address] Care Team Providers Care Heavy Equipment Technician Name Role Phone Ricardo Walls MD Primary Care Provider [phone] Gary Beard MD Primary Care Provider [phone] Encounter Details Date Type Department Care Team Description 03/06/2021 Wire Harness Assembler Report Medical Records [address] [place] [id number] Bishnu Tirado MD Social History Tobacco Use [...] on filedocumented in this encounter Care Teams Heavy Equipment Technician Relationship Specialty Start Date End Date Ricardo Walls MD [address] [place] [phone] PCP - General Internal Medicine 12/28/13 08/10/23 Gary Beard MD [address] [place] [address] PCP - General Internal Medicine 08/11/23 documented as of this encounter
--- OUTSIDE RECORDS SUMMARY | 2024-11-29 08:57 | XMS_ITS | Encounter Summary ---
Author Organization [facility] Address [address] [place] [address] Care Team Providers Care Pest Control Service Representative Name Role Phone Ricardo Walls MD Primary Care Provider [phone] Gary Beard MD Primary Care Provider [phone] Encounter Details Date Type Department Care Team Description 01/07/2021 Wrapper Caser Report Medical Records [address] [place] [id number] Bishnu Tirado MD Social History Tobacco Use [...] on filedocumented in this encounter Care Teams Pest Control Service Representative Relationship Specialty Start Date End Date Ricardo Walls MD [address] [place] [address] PCP - General Internal Medicine 12/28/13 08/10/23 Gary Beard MD [address] [place] [address] PCP - General Internal Medicine 08/11/23 documented as of this encounter
== END 2024-11-29 08:38 | disposition home or self-care (01) ==
LOC: HO.HAP 08:37
PROVIDERS: Visit Provider Internal Medicine
DX: Z13.89 Encounter for screening for other disorder (principal)

== ENCOUNTER 2025-02-01 09:42 | Outpatient (REF) | payer OTHER, MEDICAID, SELFPAY ==
--- NOTE | 2025-02-01 10:54 | MHC.AU.HA3 ---
Hearing Instrument Follow-Up- Binaural Date of Visit: 02/01/25 Right Ear: Make, Model, Color, Serial Number: Oticon Xceed 2 BTE SP SN: [id number] Color: Chroma Biege Operations Chief Repair Warranty: 05/06/2027 Operations Chief Loss and Damage Warranty: 05/06/2027 [facility] Service Plan: 05/23/2025 Battery Size: 13 Earmold/Dome/CShell/SlimTip:Taylor Half Shell SN: [id number] Warranty 02/13/2025 Dispensed By: [facility] Date of Fittin05/23/2024 Left Ear: Make, Model, Color, Serial Number: Oticon Xceed 2 BTE SP SN: [id number] Color: Chroma Biege Operations Chief Repair Warranty: 05/06/2027 Operations Chief Loss and Damage Warranty: 05/06/2027 [facility] Service Plan: 05/23/2025 Battery Size: 13 Earmold/Dome/CShell/SlimTip: Taylor Half Shell SN: [id number] Warranty 04/27/2025 Dispensed By: [facility] Date of Fittin05/23/2024 Follow-Up Summary: Fit new left EM. Right tubing hard and discolored. Cleaned right CLARK/EM. Replaced tubing. Vacuumed microphones. Listening check demonstrated HAs amplifying clearly. Kylah inquired about clearing moisture build up in tubes. Provided air blower and instructed on use. Recommendations: Hearing instrument follow-up or maintenance as needed. Please contact our clinic with any questions or concerns. Diagnosis Code(s): Primary Diagnosis: H90.3 Bilateral Sensorineural Hearing Loss Signature: Provider: Lucien Cisneros, [facility]
--- OUTSIDE RECORDS SUMMARY | 2025-02-01 11:00 | XMS_ITS | Clinical Summary ---
Author Organization [facility] Address [address] [place] [address] Care Team Providers Care Gender Studies Professor Name Role Phone Gary Beard MD Primary Care Provider Allergies Active Allergy Reactions Criticality Noted Date Comments Levofloxacin Swelling 01/05/2014 Penicillins Anaphylaxis High 03/10/2006 Medications naltrexone microspheres (VIVITROL IM) Inject into the muscle. Active PNV,calcium 92-dgxn-lowpv acid ( Vitamin Plus Low Iron) 27 mg iron- 1 mg tablet TAKE 1 TABLET BY MOUTH EVERY DAY Active butalbital-aceta minophen-caffein e (FIORICET, ESGIC) 50-325-40 mg per tablet TAKE [...] comply. She will haver her US in [place] and I will contact nursing there to [...] TONSILLECTOMY ADENOIDECTOMY, BILATERAL MYRINGOTOMY AND TUBES PROCEDURE: [place] TONSILLECTOMY & ADENOIDECTOMY <AGE 10; COMMENT: HISTORICAL [...] COMM ENT: Has a therapist from [facility] in [facility]. Also for etoh Family History [...] Date Smoking Tobacco: Every Day Cigarettes 0.5 23.5 Started: 08/15/2001 Smokeless Tobacco: Never Alcohol Use Standard Drinks/Week Comments No 0 (1 standard drink = 0.6 oz pur e alcohol) Comments Unknown Sex and Gender Information Value Date Recorded Sex Assigned at Not on file Legal Sex Female 10:21 PM EST Gender Identity Not on file Sexual Orientation [...] 3:00 PM EDT Office Visit Adult Medicine [facility] [address] [place] [address] Gary Beard MD [address] [facility] [place] [address] Health Maintenance Due Date Last Done Comments Breast Cancer Screening 1983 Hepatitis B Vaccines (1 of 3 - 19+ 3-dose series) 2002 Pneumococcal Vaccine: Pediatrics (0 to 5 Years) and At-Risk Patients (6 to 64 Years) (1 of 2 - PCV) 2002 Cervical Cancer Screening: HPV 01/24/2020 01/23/2015 Depression Screening 10/04/2022 Social Influencers of Health Screening 10/04/2022 COVID-19 Vaccine (3 - 2023-2 5 season) 2024 12/28/2020, 11/30/2020 Influenza Vaccine (Season Ended) 2025 07/08/2023 Cholesterol Screening (Lipid Panel) 01/10/2029 01/11/2024 [...] patient's age to complete this topic Meningococcal B Vacine Aged Out No lo nger eligible based on patient's age to complete [...] Maintenance Results * (ABNORMAL) Lipid panel (01/11/2024) Pathologist [facility] LDL/HDL Ratio 4 0 - 4 Triglycerides 73 0 - 150 mg/dL Cholesterol 201(A) 0 - 200 mg/dL HDL 57 >=40 mg/dL LDL Cholesterol 130(A) 0 - 100 mg/dL Blood Venous blood specimen / Unknown Historical Provider LAB BLOOD ORDERABLES Nisha l Result * HIV Screening (12/20/2015) Pathologist [facility] HIV Screening abstracted Historical Provider HEALTH MAINTENANCE Final Result * Hepatitis C Screening (01/29/2015) Pathologist [facility] Hepatitis C Screening abstracted [facility] Provider HEALTH MAINTENANCE Final Result * Cervical Cancer Screening: HPV (01/23/2015) Pathologist [facility] Cervical Cancer Screening: HPV negative interpretation abstracted Historical Provider HEALTH MAINTENANCE Final Result from Last 3 Months or Most Recently Relevant to Health Maintenance Care Teams Gender Studies Professor Relationship Specialty Start Date End Date Gary Beard MD [address] [place] [address] PCP - General 08/11/23
== END 2025-02-01 09:43 | disposition home or self-care (01) ==
LOC: HO.HAP 09:42
PROVIDERS: Visit Provider Internal Medicine
DX: Z46.1 Encounter for fitting and adjustment of hearing aid (principal); H90.3 Sensorineural hearing loss, bilateral
CPT/HCPCS: 92592; 99499; V5264

== ENCOUNTER 2025-05-18 09:22 | Outpatient (REF) | payer SELFPAY ==
--- OUTSIDE RECORDS SUMMARY | 2025-05-18 09:40 | XMS_ITS | Clinical Summary ---
Author Organization [facility] Address [address] [place] [address] Care Team Providers Care Advertising Columnist Name Role Phone Gary Beard MD Primary Care Provider Allergies Active Allergy Reactions Criticality Noted Date Comments Levofloxacin Swelling 01/05/2014 Penicillins Anaphylaxis High 03/10/2006 Medications naltrexone microspheres (VIVITROL IM) Inject into the muscle. Active PNV,calcium 11-vvws-jpzyy acid ( Vitamin Plus Low Iron) 27 [...] comply. She will haver her US in [place] and I will contact nursing there to [...] sono orderd Pure hypercholesterolemia 01/08/2015 Alcohol dependence (CMS/HCC V24, CMS/HCC V28) Overview (10/28/2024): Last Assessment & Plan: She [...] TONSILLECTOMY ADENOIDECTOMY, BILATERAL MYRINGOTOMY AND TUBES PROCEDURE: [place] TONSILLECTOMY & ADENOIDECTOMY <AGE 10; COMMENT: HISTORICAL [...] hypercholesterolemia 01/08/2015 DX:Pur e hypercholesterolemia EtOH dependence (CMS/HCC V24 , CMS/[facility] V28) DX:EtOH dependence (HCC); CO MMENT: stopped then no remission resumed in . Recovery 2016 Morbid obesity with BMI of 4 0.0-44.9, adult (CMS/HCC V24, CMS/[facility] V28) 01/31/2016 DX:Morbid obesity wit h BMI of 40.0-44.9, adult ([facility]); COMMENT: Needs anesthesia consult in early 3rd trimester Anxiety 01/03/2016 DX:Anxiety; COMM ENT: Has a therapist from [facility] in [facility]. Also for etoh Family History Medical [...] Date Smoking Tobacco: Every Day Cigarettes 0.5 23.8 Started: 08/15/2001 Smokeless Tobacco: Never Alcohol Use [...] 3:00 PM EDT Office Visit Adult Medicine [facility] [address] [facility] [place] [address] Gary Beard MD [address] [facility] [place] [address] Health Maintenance Due Date Last Done Comments Breast Cancer Screening 1983 Hepatitis A Vaccines (1 of 2 - Risk 2-dose series) 2002 Hepatitis B Vaccines (1 of 3 - 19+ 3-dose series) 2002 Pneumococcal Vaccine: Pediatrics (0 to 5 Years) and At-Risk Patients (6 to 49 Years) (1 of 2 - PCV) 2002 Cervical Cancer Screening: HPV 01/24/2020 01/23/2015 Depression Screening 10/04/2022 Social Influencers of Health Screening 10/04/2022 COVID-19 Vaccine (3 - 2023-2 5 season) 2024 12/28/2020, 11/30/2020 Influenza Vaccine (#1) 2025 07/08/2023 Cholesterol Screening (Lipid Panel) 01/10/2029 [...] age to complete this topic Meningococcal B Vaccine Aged Out No l onger eligible based on patient's age to complete [...] Maintenance Results * (ABNORMAL) Lipid panel (01/11/2024) [facility] LDL/HDL Ratio 4 0 - 4 Triglycerides 73 0 - 150 mg/dL Cholesterol 201(A) 0 - 200 mg/dL HDL 57 >=40 mg/dL LDL Cholesterol 130(A) 0 - 100 mg/dL Blood Venous blood specimen / Unknown [facility] Provider LAB BLOOD ORDERABLES Nisha l Result * HIV Screening (12/20/2015) [facility] HIV Screening abstracted [facility] Provider HEALTH MAINTENANCE Final Result * Hepatitis C Screening (01/29/2015) [facility] Hepatitis C Screening abstracted [facility] Provider HEALTH MAINTENANCE Final Result * Cervical Cancer Screening: HPV (01/23/2015) [facility] Cervical Cancer Screening: HPV negative interpretation abstracted [facility] Provider HEALTH MAINTENANCE Final Result from Last 3 Months or Most Recently Relevant to Health Maintenance Care Teams Advertising Columnist Relationship Specialty Start Date End Date Gary Beard MD [address] [place] [address] [place] [address] PCP - General 08/11/23
--- NOTE | 2025-05-18 11:41 | MHC.AU.HA3 ---
Hearing Instrument Follow-Up- Binaural Date of Visit: 05/18/25 Right Ear: Make, Model, Color, Serial Number: Otmaria e Xceed 2 BTE SP SN: [id number] Color: Chroma Biege Certified Ski Patroller Repair Warranty: 05/06/2027 Certified Ski Patroller Loss and Damage Warranty: 05/06/2027 [facility] Service Plan: 05/23/2025 Battery Size: 13 Art Education Professor/Slim Tube: Earmold/Dome/CShell/SlimTip:Taylor Half Shell SN: [id number] Warranty 02/13/2025 Dispensed By: [facility] Date of Fittin05/23/2024 Left Ear: Make, Model, Color, Serial Number: Otmaria e Xceed 2 BTE SP SN: [id number] Color: Chroma Biege Certified Ski Patroller Repair Warranty: 05/06/2027 Certified Ski Patroller Loss and Damage Warranty: 05/06/2027 [facility] Service Plan: 05/23/2025 Battery Size: 13 Earmold/Dome/CShell/SlimTip: Taylor Half Shell SN: [id number] Warranty 04/27/2025 Type of Wax Guard: Dispensed By: [facility] Date of Fittin05/23/2024 Follow-Up Summary: Seen for maintenance. Reports right tube is coming off of hearing aid, getting feedback from both sides, right tube too long. Tubes very hard. Cleaned aids, ran through dehumidifier, brushed microphones. Cleaned earmolds. Re-tubed with TRS dri tubing. Listening check positive. Kylah reports improvement. Discussed possible fees for service in the future as service plan expires soon and Kylah reports insurance is changing. Recommendations: Recommendations: Hearing instrument follow-up or maintenance as needed. Diagnosis Code(s): Primary Diagnosis: H90.3 Bilateral Sensorineural Hearing Loss Signature: Provider: Lucien Padilla, [facility]
== END 2025-05-18 09:23 | disposition home or self-care (01) ==
LOC: HO.HAP 09:22
PROVIDERS: Visit Provider Internal Medicine
DX: Z13.89 Encounter for screening for other disorder (principal)

== ENCOUNTER 2025-06-08 09:37 | Outpatient (AMB) | payer OTHER, MEDICAID, SELFPAY ==
--- NOTE | 2025-06-08 09:38 | A.OFFVIS_ITS ---
Intake Visit Reasons: 3 Month MS Allergies Penicillins Allergy (Verified 02/20/21 07:33) Unknown levofloxacin (From Levaquin) Adverse Reaction (Verified 02/20/21 07:33) Rash HPI Comments Details: 40-year-old woman with clinical picture of remitting relapsing MS. She presented in 2020 with right sided numbness when her MRI brain revealed a few WM lesions, and CSF revealed OCBs. Her MRI of 2022 revealed somewhat worsening of brain lesions and she was started on dimethyl fumarate which was discontinued after brain MRI in 2023 revealed some new lesions and she was started on Kesimpta. She was doing so-so. She was doing okay with Kesimpta. Pain in legs was much better with pregabalin 300mg daily. RLS symptoms were not as bad with pramipexole. Sometimes she felt like she had trouble focusing eyes, but no double or blurred vision. She had eye exam in 01/2025. Some occasional headaches, but able to function with it and does not take sumatriptan. Sleep was still not so good. Mood was more anxious and depressed. She was under more stress lately, partially related to finances. [facility] Medical History (Updated 06/08/25 @ 09:42 by Radha Reddy CNP) RLS (restless legs syndrome) Tension headache Migraine Anxiety and depression Demyelinating disease Multiple sclerosis H/O alcohol abuse Substance abuse Paresthesia Numbness and tingling Review of Systems Const Denies chills, Denies daytime sleepiness, Reports difficulty sleeping, Denies fatigue, Denies fever(s), Denies frequent falls, Reports headache(s), Denies increased appetite, Denies poor appetite, Denies snoring, Denies weakness, Denies weight gain and Denies weight loss Eyes Denies loss of vision ENT Denies vertigo, Denies dizziness and Reports headache(s) Card Denies chest pain at rest, Denies chest pain with activity, Denies syncope, Denies leg edema and Denies palpitations Resp Denies snoring GI Denies constipation, Denies heartburn, Denies diarrhea and Denies nausea Denies urinary frequency, Denies urinary incontinence and Denies urinary urgency Musc Denies abnormal gait, Denies numbness and Denies tingling Skin/Breast Denies dry skin and Denies rash Neuro Denies abnormal gait, Denies vertigo, Denies dizziness, Denies syncope, Denies frequent falls, Reports headache(s), Denies lack of coordination, Denies loss of vision, Denies memory loss, Denies numbness, Reports restless legs, Denies seizure-like activity, Denies tingling, Denies paresthesias, Denies tremor(s) and Denies weakness Psych Reports anxiety, Reports depression, Denies auditory hallucinations, Denies memory loss, Denies visual hallucinations and Denies suicidal ideation Endo Denies fatigue and Denies palpitations Physical Exam Const Other: General Appearance:? normal, in no acute distress. Skin:? no rashes, no significant birthmarks. Heart:? S1, S2 normal, no murmurs. Lungs:? clear anteriorly and posteriorly. Extremities:? no edema. Psych:? alert, oriented, cognitive function intact, cooperative with exam. Neuro Other: Mental Status:?Normal attention, orientation, memory and affect.? Cranial Nerves:?Pupils are equal, round and reactive to light. External occular muscles are intact. Visual allen are full. Face is symmetrical. Facial sensations are normal. Tongue is midline. Palate elevates symmetrically. Shoulder shrugging is normal. Hearing to bedside conversation is slightly decreased. Sensory Exam:?....? Coordination:?No ataxia,?no titubation.? Gait Exam: Within normal limits. Cerebellar Signs:?Vctigg-ov-lonf is okay. Extrapyramidal System:?No tremor, rigidity with normal facial expressions.? Pronator Drift:?Not present.? Involuntary Movements:?No tremors seen.? Speech:?Normal.? Results Reviewed Results Reviewed: MRI brain WWO at [place] in Aug 2024: Multiple MS type lesions, some new MRI brain WO at [place] in Aug 2023: Some lesions are more prominant and there are few more preiventricular lesions MRI brain WO at [place] in Dec 2020: a few lesions, suggestive of MS, b/l cerebellar peduncles, L FP periventricular [place] [facility] in Jan 2021: OP 18cm, WBCs 20 (96% L), RBCs 0, Glu 59, Pro 26.6, IgG ind: high (2.78), OCBs: >5 bands in CSF and serum Labs at [facility] in Jan 2021: Lyme ok, RPR ok, ESR 19, CBC ok, IF ok, Ds DNA ok Assessment & Plan Assessment & Plan (1) Multiple sclerosis: Code(s): G35 - Multiple sclerosis Category: Medical Plan: Continue Kesimpta Solution Auto-injector 20mg/0.4mL monthly subcutaneous. Continue pregabalin 300mg 1 capsule daily. (2) RLS (restless legs syndrome): Code(s): G25.81 - Restless legs syndrome Category: Medical Plan: Continue pramipexole dihydrochloride 0.5mg 1 tablet in the evening. (3) Depression with anxiety: Code(s): F41.8 - Other specified anxiety disorders Category: Medical Plan: Increase citalopram 20mg 1 tablet daily. (4) Migraine: Code(s): G43.909 - Migraine, unspecified, not intractable, without status migrainosus Category: Medical Qualifiers: Migraine type: migraine (< 15 days per month) without aura Status migrainosus presence: without status migrainosus Intractability: not intractable Qualified Code(s): G43.009 - Migraine without aura, not intractable, without status migrainosus Plan: Continue sumatriptan 50mg 1 tablet as needed (5) Tension headache: Code(s): G44.209 - Tension-type headache, unspecified, not intractable Category: Medical Plan Meds tried: Sertraline, amitriptyline, gabapentin. Medications: New citalopram 20 mg PO DAILY 90 tabs 1RF 90 days Discontinued citalopram Discontinued Reason: Doctor's Order 10 mg PO DAILY 90 days 90 tabs 1RF Coding Level of Care Code Est Pt Level 4 (52931) Diagnoses Multiple sclerosis G35 RLS (restless legs syndrome) G25.81 Depression with anxiety F41.8 Migraine without aura and without status migrainosus, not intractable G43.009 Migraine type: migraine (< 15 days per month) without aura Status migrainosus presence: without status migrainosus Intractability: not intractable Tension headache G44.209
--- OUTSIDE RECORDS SUMMARY | 2025-06-08 10:04 | XMS_ITS | Clinical Summary ---
Author Organization [facility] Address [address] [place] [address] Care Team Providers Care Drywall Hanger Name Role Phone Gary Beard MD Primary Care Provider Allergies Active Allergy Reactions Criticality Noted Date Comments Levofloxacin Swelling 01/05/2014 Penicillins Anaphylaxis High 03/10/2006 Medications naltrexone microspheres (VIVITROL IM) Inject into the muscle. Active PNV,calcium 64-mtjx-bapso acid ( Vitamin Plus Low Iron) 27 [...] comply. She will haver her US in [place] and I will contact nursing there to [...] TONSILLECTOMY ADENOIDECTOMY, BILATERAL MYRINGOTOMY AND TUBES PROCEDURE: [place] TONSILLECTOMY & ADENOIDECTOMY <AGE 12; COMMENT: HISTORICAL [...] e hypercholesterolemia EtOH dependence (CMS/HCC V24 , CMS/[facility] V28) DX:EtOH dependence (HCC); CO MMENT: stopped then no remission resumed in . Recovery 2016 Morbid obesity with BMI of 4 0.0-44.9, adult (CMS/HCC V24, CMS/[facility] V28) 01/31/2016 DX:Morbid obesity wit h BMI of 40.0-44.9, adult ([facility]); COMMENT: Needs anesthesia consult in early 3rd trimester Anxiety 01/03/2016 DX:Anxiety; COMM ENT: Has a therapist from [facility] in [facility]. Also for etoh Family History Medical [...] 3:00 PM EDT Office Visit Adult Medicine [facility] [address] [place] [address] Gary Beard MD [address] [place] [address] Health Maintenance Due Date Last Done Comments Breast Cancer Screening 1983 Hepatitis A Vaccines (1 of 2 - Risk 2-dose series) 2002 Hepatitis B Vaccines (1 of 3 - 19+ 3-dose series) 2002 Pneumococcal Vaccine: Pediatrics (0 to 5 Years) and At-Risk Patients (6 to 49 Years) (1 of 2 - PCV) 2002 Cervical Cancer Screening: HPV 01/24/2020 01/23/2015 Social Influencers of Health Screening 10/04/2022 COVID-19 Vaccine (3 - 2023-2 5 season) 2024 12/28/2020, 11/30/2020 Depression Screening 11/02/2024 Influenza Vaccine (#1) 2025 07/08/2023 Cholesterol Screening [...] Maintenance Results * (ABNORMAL) Lipid panel (01/11/2024) [facility] LDL/HDL Ratio 4 0 - 4 Triglycerides 73 0 - 150 mg/dL Cholesterol 201(A) 0 - 200 mg/dL HDL 57 >=40 mg/dL LDL Cholesterol 130(A) 0 - 100 mg/dL Blood Venous blood specimen / Unknown [facility] Provider LAB BLOOD ORDERABLES Nisha l Result * HIV Screening (12/20/2015) [facility] HIV Screening abstracted [facility] Provider HEALTH MAINTENANCE Final Result * Hepatitis C Screening (01/29/2015) [facility] Hepatitis C Screening abstracted [facility] Provider HEALTH MAINTENANCE Final Result * Cervical Cancer Screening: HPV (01/23/2015) [facility] Cervical Cancer Screening: HPV negative interpretation abstracted [facility] Provider HEALTH MAINTENANCE Final Result from Last 3 Months or Most Recently Relevant to Health Maintenance Care Teams Drywall Hanger Relationship Specialty Start Date End Date Gary Beard MD [address] [place] [address] [place] [address] PCP - General 08/11/23
--- OUTSIDE RECORDS SUMMARY | 2025-06-08 10:04 | XMS_ITS | Encounter Summary ---
Author Organization [facility] Address [address] [place] [address] Care Team Providers Care House Principal Name Role Phone Gary Beard MD Primary Care Provider [phone] Encounter Details Date Type Department Care Team Description 10/05/2023 Voip Technician Report Medical Records [address] [place] [address] Bishnu Tirado MD Social History Tobacco Use [...] on filedocumented in this encounter Care Teams House Principal Relationship Specialty Start Date End Date Gary Beard MD [address] [place] [address] PCP - General Internal Medicine 08/11/23 documented as of this encounter
== END 2025-06-08 10:02 | disposition home or self-care (01) ==
LOC: HO.HSM 09:37
PROVIDERS: PCP Internal Medicine; Referring Provider Internal Medicine; Visit Provider Registered Nurse
DX: G35 Multiple sclerosis (principal); G25.81 Restless legs syndrome; F41.8 Other specified anxiety disorders; G43.009 Migraine without aura, not intractable, without status migrainosus; G44.209 Tension-type headache, unspecified, not intractable
CPT/HCPCS: 99214

== ENCOUNTER 2025-06-14 08:52 | Outpatient (REF) | payer OTHER, MEDICAID, SELFPAY ==
--- OUTSIDE RECORDS SUMMARY | 2025-06-14 09:12 | XMS_ITS | Clinical Summary ---
Author Organization [facility] Address [address] [place] [address] Care Team Providers Care Heading And Priming Tool Setter Name Role Phone Gary Beard MD Primary Care Provider [phone] Allergies Active Allergy Reactions Criticality Noted Date Comments Levofloxacin Swelling 01/05/2014 Penicillins Anaphylaxis High 03/10/2006 Medications naltrexone microspheres (VIVITROL IM) Inject into the muscle. Active PNV,calcium 98-urjt-kfbnx acid ( Vitamin Plus Low Iron) 27 [...] comply. She will haver her US in [place] and I will contact nursing there to [...] TONSILLECTOMY ADENOIDECTOMY, BILATERAL MYRINGOTOMY AND TUBES PROCEDURE: [place] TONSILLECTOMY & ADENOIDECTOMY <AGE 10; COMMENT: HISTORICAL [...] e hypercholesterolemia EtOH dependence (CMS/HCC V24 , CMS/[facility] V28) DX:EtOH dependence (HCC); CO MMENT: stopped then no remission resumed in . Recovery 2016 Morbid obesity with BMI of 4 0.0-44.9, adult (CMS/HCC V24, CMS/[facility] V28) 01/31/2016 DX:Morbid obesity wit h BMI of 40.0-44.9, adult ([facility]); COMMENT: Needs anesthesia consult in early 3rd trimester Anxiety 01/03/2016 DX:Anxiety; COMM ENT: Has a therapist from [facility] in [facility]. Also for etoh Family History Medical [...] 3:00 PM EDT Office Visit Adult Medicine [facility] [address] [place] [address] Gary Beard MD [address] [place] [address] Health Maintenance Due Date Last Done Comments [...] Maintenance Results * (ABNORMAL) Lipid panel (01/11/2024) [facility] LDL/HDL Ratio 4 0 - 4 Triglycerides 73 0 - 150 mg/dL Cholesterol 201(A) 0 - 200 mg/dL HDL 57 >=40 mg/dL LDL Cholesterol 130(A) 0 - 100 mg/dL Blood Venous blood specimen / Unknown [facility] Provider LAB BLOOD ORDERABLES Nisha l Result * HIV Screening (12/20/2015) [facility] HIV Screening abstracted [facility] Provider HEALTH MAINTENANCE Final Result * Hepatitis C Screening (01/29/2015) [facility] Hepatitis C Screening abstracted [facility] Provider HEALTH MAINTENANCE Final Result * Cervical Cancer Screening: HPV (01/23/2015) [facility] Cervical Cancer Screening: HPV negative interpretation abstracted [facility] Provider HEALTH MAINTENANCE Final Result from Last 3 Months or Most Recently Relevant to Health Maintenance Care Teams Heading And Priming Tool Setter Relationship Specialty Start Date End Date Gary Beard MD [address] [place] [address] [place] [address] PCP - General 08/11/23
== END 2025-06-14 08:53 | disposition home or self-care (01) ==
LOC: HO.SH 08:52
PROVIDERS: Visit Provider Internal Medicine
DX: Z13.89 Encounter for screening for other disorder (principal)

== ENCOUNTER 2025-06-15 12:00 | Outpatient (REF) | payer OTHER, MEDICAID, SELFPAY ==
--- OUTSIDE RECORDS SUMMARY | 2025-06-15 13:00 | XMS_ITS | Clinical Summary ---
Author Organization [facility] Address [address] [place] [address] Care Team Providers Care Planning Management It Specialist Name Role Phone Gary Beard MD Primary Care Provider Allergies Active Allergy Reactions Criticality Noted Date Comments Levofloxacin Swelling 01/05/2014 Penicillins Anaphylaxis High 03/10/2006 Medications naltrexone microspheres (VIVITROL IM) Inject into the muscle. Active PNV,calcium 15-xvjb-meqnl acid ( Vitamin Plus Low Iron) 27 [...] comply. She will haver her US in [place] and I will contact nursing there to [...] TONSILLECTOMY ADENOIDECTOMY, BILATERAL MYRINGOTOMY AND TUBES PROCEDURE: [place] TONSILLECTOMY & ADENOIDECTOMY <AGE 10; COMMENT: HISTORICAL [...] e hypercholesterolemia EtOH dependence (CMS/HCC V24 , CMS/[facility] V28) DX:EtOH dependence (HCC); CO MMENT: stopped then no remission resumed in . Recovery 2016 Morbid obesity with BMI of 4 0.0-44.9, adult (CMS/HCC V24, CMS/[facility] V28) 01/31/2016 DX:Morbid obesity wit h BMI of 40.0-44.9, adult ([facility]); COMMENT: Needs anesthesia consult in [...] Visit Adult Medicine [facility] [address] [place] [address] Gary Beard MD [address] [place] [address] Health Maintenance Due Date Last Done Comments [...] Maintenance Results * (ABNORMAL) Lipid panel (01/11/2024) [facility] LDL/HDL Ratio 4 0 - 4 Triglycerides 73 0 - 150 mg/dL Cholesterol 201(A) 0 - 200 mg/dL HDL 57 >=40 mg/dL LDL Cholesterol 130(A) 0 - 100 mg/dL Blood Venous blood specimen / Unknown [facility] Provider LAB BLOOD ORDERABLES Nisha l Result * HIV Screening (12/20/2015) [facility] HIV Screening abstracted [facility] Provider HEALTH MAINTENANCE Final Result * Hepatitis C Screening (01/29/2015) [facility] Hepatitis C Screening abstracted [facility] Provider HEALTH MAINTENANCE Final Result * Cervical Cancer Screening: HPV (01/23/2015) [facility] Cervical Cancer Screening: HPV negative interpretation abstracted [facility] Provider HEALTH MAINTENANCE Final Result from Last 3 Months or Most Recently Relevant to Health Maintenance Care Teams Planning Management It Specialist Relationship Specialty Start Date End Date Gary Beard MD [address] [place] [address] [place] [address] PCP - General 08/11/23
== END 2025-06-15 12:01 | disposition home or self-care (01) ==
LOC: HO.HAP 12:00
DX: Z13.89 Encounter for screening for other disorder (principal)

== ENCOUNTER 2025-09-06 09:30 | Outpatient (AMB) | payer OTHER, MEDICAID, SELFPAY ==
--- NOTE | 2025-09-06 09:38 | A.OFFVIS_ITS ---
Intake Visit Reasons: 3 MS, RLS, anxiety Allergies Penicillins Allergy (Verified 09/06/25 09:39) Unknown levofloxacin (From Levaquin) Adverse Reaction (Verified 09/06/25 09:39) Rash Medication List - Last Reconciled 09/06/25 by Radha Reddy CNP citalopram 20 mg PO DAILY 90 days ofatumumab (Kesimpta Pen) mg subcut pramipexole 0.5 mg PO QPM 90 days pregabalin 300 mg PO DAILY sumatriptan succinate 50 mg PO BID PRN HPI Comments Details: 40-year-old woman with clinical picture of remitting relapsing MS. She presented in 2020 with right sided numbness when her MRI brain revealed a few WM lesions, and CSF revealed OCBs. Her MRI of 2022 revealed somewhat worsening of brain lesions and she was started on dimethyl fumarate which was discontinued after brain MRI in 2023 revealed some new lesions and she was started on Kesimpta. She was doing okay. She was doing okay with Kesimpta. No medication side effects. She was taking pregabalin during the day and medication helped with pain in legs, but sometimes made her tired and she was asking if dose could be lowered. She felt like visual acuity was not so good, but no double vision. She had eye exam in 01/2025. Sleep was not so good. RLS symptom were okay with pramipexole. Some occasional headaches, but able to function with it and does not take sumatriptan. Mood was okay with increased dose of citalopram. [facility] Medical History (Updated 06/08/25 @ 09:42 by Radha Reddy CNP) RLS (restless legs syndrome) Tension headache Migraine Anxiety and depression Demyelinating disease Multiple sclerosis H/O alcohol abuse Substance abuse Paresthesia Numbness and tingling Review of Systems Const Denies chills, Denies daytime sleepiness, Reports difficulty sleeping, Denies fatigue, Denies fever(s), Denies frequent falls, Reports headache(s), Denies increased appetite, Denies poor appetite, Denies snoring, Denies weakness, Denies weight gain and Denies weight loss Eyes Denies loss of vision ENT Denies vertigo, Denies dizziness and Reports headache(s) Card Denies chest pain at rest, Denies chest pain with activity, Denies syncope, Denies leg edema and Denies palpitations Resp Denies snoring GI Denies constipation, Denies heartburn, Denies diarrhea and Denies nausea Denies urinary frequency, Denies urinary incontinence and Denies urinary urgency Musc Denies abnormal gait, Denies numbness and Denies tingling Skin/Breast Denies dry skin and Denies rash Neuro Denies abnormal gait, Denies vertigo, Denies dizziness, Denies syncope, Denies frequent falls, Reports headache(s), Denies lack of coordination, Denies loss of vision, Denies memory loss, Denies numbness, Reports restless legs, Denies seizure-like activity, Denies tingling, Denies paresthesias, Denies tremor(s) and Denies weakness Psych Reports anxiety, Reports depression, Denies auditory hallucinations, Denies memory loss, Denies visual hallucinations and Denies suicidal ideation Endo Denies fatigue and Denies palpitations Physical Exam Const Other: General Appearance:? normal, in no acute distress. Skin:? no rashes, no significant birthmarks. Heart:? S1, S2 normal, no murmurs. Lungs:? clear anteriorly and posteriorly. Extremities:? no edema. Psych:? alert, oriented, cognitive function intact, cooperative with exam. Neuro Other: Mental Status:?Normal attention, orientation, memory and affect.? Cranial Nerves:?Pupils are equal, round and reactive to light. External occular muscles are intact. Visual allen are full. Face is symmetrical. Facial sensations are normal. Tongue is midline. Palate elevates symmetrically. Shoulder shrugging is normal. Hearing to bedside conversation is slightly decreased. Sensory Exam:?....? Coordination:?No ataxia,?no titubation.? Gait Exam: Within normal limits. Cerebellar Signs:?Cdnsvt-pr-libn is okay. Extrapyramidal System:?No tremor, rigidity with normal facial expressions.? Pronator Drift:?Not present.? Involuntary Movements:?No tremors seen.? Speech:?Normal.? Results Reviewed Results Reviewed: MRI brain WWO at [facility] in Aug 2024: Multiple MS type lesions, some new MRI brain WO at [facility] in Aug 2023: Some lesions are more prominant and there are few more preiventricular lesions MRI brain WO at [facility] in Dec 2020: a few lesions, suggestive of MS, b/l cerebellar peduncles, L FP periventricular LP at [facility] in Jan 2021: OP 18cm, WBCs 20 (96% L), RBCs 0, Glu 59, Pro 26.6, IgG ind: high (2.78), OCBs: >5 bands in CSF and serum Labs at [facility] in Jan 2021: Lyme ok, RPR ok, ESR 19, CBC ok, IF ok, Ds DNA ok Assessment & Plan Assessment & Plan (1) Multiple sclerosis: Code(s): G35 - Multiple sclerosis Category: Medical Plan: Pregabalin was helping with pain, but she was tired with 300mg dose and was asking if lower dose could be tried. Decrease pregabalin 225mg 1 capsule daily. Continue Kesimpta Solution Auto-injector 20mg/0.4mL monthly subcutaneous. MRI brain W&WO ordered. (2) RLS (restless legs syndrome): Code(s): G25.81 - Restless legs syndrome Category: Medical Plan: Continue pramipexole dihydrochloride 0.5mg 1 tablet in the evening. (3) Depression with anxiety: Code(s): F41.8 - Other specified anxiety disorders Category: Medical Plan: Continue citalopram 20mg 1 tablet daily. (4) Migraine: Code(s): G43.909 - Migraine, unspecified, not intractable, without status migrainosus Category: Medical Qualifiers: Migraine type: migraine (< 15 days per month) without aura Status migrainosus presence: without status migrainosus Intractability: not intractable Qualified Code(s): G43.009 - Migraine without aura, not intractable, without status migrainosus Plan: Continue sumatriptan 50mg 1 tablet as needed (5) Tension headache: Code(s): G44.209 - Tension-type headache, unspecified, not intractable Category: Medical Plan Meds tried: Sertraline, amitriptyline, gabapentin. Orders: Orders MR head/brain wo/w con Today G35 - Multiple sclerosis Medications: New pregabalin 225 mg PO DAILY 30 caps 2RF 30 days Coding Level of Care Code Est Pt Level 4 (08402) Diagnoses Multiple sclerosis G35 RLS (restless legs syndrome) G25.81 Depression with anxiety F41.8 Migraine without aura and without status migrainosus, not intractable G43.009 Migraine type: migraine (< 15 days per month) without aura Status migrainosus presence: without status migrainosus Intractability: not intractable Tension headache G44.209
--- OUTSIDE RECORDS SUMMARY | 2025-09-06 10:37 | XMS_ITS | Encounter Summary ---
Author Organization [facility] Address [address] [place] [address] Care Team Providers Care Senior Sales Director Name Role Phone Gary Beard MD Primary Care Provider [phone] Reason for Referral * Consultation (Routine) - Authorized Specialty Diagnoses / Procedures Referred By Contact Referred To Contact Orthopaedics / Orthopaedic Surgery Diagnoses Garcia's cyst of knee, right Gary Beard MD [address] [place] [address] Phone: tel: fax: Alpesh Morrow PA [address] [place] [phone] Phone: tel: fax: Referral ID Status Reason Start Date Expiration Date Visits Requested Visits Authorized [id number] Authorized Specialty Services Required 08/31/2026 1 1 * Consultation (Routine) - Authorized Specialty Diagnoses / Procedures Referred By Contac t Referred To Contact Vascular Surgery Diagnoses Venous insufficiency Gary Beard MD [address] [place] [address] Phone: tel: fax: Vascular Surgery [address] [address] [place] [address] Phone: tel: fax: Referral ID Status Reason Start Date Expiration Date Visits Requested Visits Authorized [id number] Authorized Specialty Services Required 08/31/2026 6 6 Encounter Details Date Type Department Care Team (Late st Contact Info) Description 08/31/2025 Results Follow-Up Adult Medicine [facility] [address] [place] [address] Gary Beard MD [address] [place] [address] Social History Tobacco Use Types Packs/Day Years Used Date Smoking Tobacco: Every Day Cigarettes 0.5 24.1 Started: 08/15/2001 Smokeless Tobacco: Never Alcohol Use Standard Drinks/Week Comments No 0 (1 standard drink = 0.6 oz pur e alcohol) Housing Instability Answer Date Recorde d Are you worried that in the next 2 months you may not have stable housing? No 07/13/2025 Food Access & Nutrition Answer Date Rec orded Do you have access to a vari ety of food including fruits and vegetables? Yes 07/13/2025 Access to Healthcare Answer Date Record ed Within the last 3 months, ho w many times did you visit the emergency department for your medical care? 0 07/13/2025 Health Literacy Answer Date Recorded How often do you need to hav e someone help you when you read instructions, pamphlets, or other written material from your doctor or pharmacy? Never 07/13/2025 Caregiver: How often do you need to have someone help you when you read instructions, pamphlets, or other written material from your doctor or pharmacy? Not on file 07/13/2025 Financial Risk Answer Date Recorded How hard is it for you to pa y for the very basics like food, housing, medical care, and air conditioning / heating? Not very hard 07/13/2025 Transportation Answer Date Recorded Has the lack of transportati on kept you from meetings, work, or from getting things needed for daily living? No Has the lack of transportati on kept you from medical appointments or from getting medications? No 07/13/2025 Social Isolation Answer Date Recorded How often do you feel lonely or isolated from th ose around you? Never 07/13/2025 Food Risk Answer Date Recorded Within the past 12 months we worried whether our food would run out before we got money to buy more. Never true 07/13/2025 Within the past 12 months th e food we bought just didn't last and we didn't have money to get more. Never true 07/13/2025 Dependent Care Answer Date Recorded Do you need help finding or paying for care for your loved ones. For example, children's choir director or elderly care for an older adult? No 07/13/2025 Education Answer Date Recorded Do you think completing more education or training, like finishing a GED, going to college, or learning a trade, would be helpful for you? No 07/13/2025 Employment and Income Answer Date Recor ded During the last four weeks, have you been actively looking for work? No 07/13/2025 Living Situation Answer Date Recorded What is your living situation? Unrecognized valu e 07/13/2025 Comments Unknown Sex and Gender Information Value Date Recorded Sex Assigned at Not on file Legal Sex Female 10:21 PM EST Gender Identity Not on file Sexual Orientation Not on file documented as of this encounter Plan of Treatment Upcoming Encounters Date Type Department Care Team (Late st Contact Info) Description 07/19/2026 3:00 PM EDT Office Visit Adult Medicine [facility] [address] [place] [phone] Gary Beard MD [address] [place] [address] Scheduled Orders Name Type Priority Associated Diagnoses Orde r Schedule Lipid panel with reflex to direct LDL Lab Routine Hyperlipidemia, unspecified hyperlipidemia type 1 Occurrences starting 08/31/2025 until 08/31/2026 CBC and differential Lab Routine Abnormal CBC 1 Occurrences starting 08/31/2025 until 08/31/2026 Scheduled Referrals Name Type Priority Associated Diagnoses Orde r Schedule Ambulatory referral to Vascular Surgery Outpatient Referral Routine Venous insufficiency 1 Occurrences starting 08/31/2025 until 08/31/2026 Ambulatory referral to Orthopedic Outpatient Referral Routine Garcia's cyst of knee, right 1 Occurrences starting 08/31/2025 until 08/31/2026 documented as of this encounter Visit Diagnoses Diagnosis Venous insufficiency- Primary Unspecified venous (peripheral) insufficiency Garcia's cyst of knee, right Hyperlipidemia, unspecified hyperlipidemia type Abnormal CBC Other abnormal blood chemistry documented in this encounter Additional Health Concerns Assessment Noted Time PHQ-9 Depression Total Score: 0 07/13/20 25 2:18 PM EDT documented as of this encounter Care Teams Senior Sales Director Relationship Specialty Start Date End Date Gary Beard MD [address] [place] [address] PCP - General 08/11/23 documented as of this encounter
--- OUTSIDE RECORDS SUMMARY | 2025-09-06 10:37 | XMS_ITS | Clinical Summary ---
Author Organization [facility] [address] [place] [address] [place] [address] Phone Care Team Providers Care President Ceo & Founder Name Role Phone Gary Beard MD Primary Care Provider Allergies Active Allergy Reactions Criticality Noted Date Comments Levofloxacin Swelling 01/05/2014 Penicillins Anaphylaxis High 03/10/2006 Medications Kesimpta Pen 20 mg/0.4 mL pen injector injection Inject 0.4 mL (20 mg total) under the skin. 06/22/2025 Active pregabalin (LYRICA) 300 mg capsule Take 1 capsule (300 mg total) by mouth 1 (one) time each day. for 30 days Max Daily Amount: 300 mg 06/25/2025 Active SUMAtriptan (IMITREX) 50 mg tablet TAKE 1 TABLET BY MOUTH TWICE A DAY WITH AT LEAST 2 HOURS BETWEEN DOSES NEEDED FOR 30 DAYS 05/11/2025 Active pramipexole (MIRAPEX) 0.5 mg tablet 07/12/2025 Active citalopram (CeleXA) 20 mg tablet Take 1 tablet (20 mg total) by mouth 1 (one) time each day. 06/08/2025 Active Active Problems Problem Noted Date Diagnosed Date Family history of lung cancer 07/13/2025 Class 2 obesity due to exces s calories with body mass index (BMI) of 38.0 to 38.9 in adult 07/13/2025 Multiple sclerosis 07/13/2025 Anxiety and depression 07/13/2025 Paresthesia of upper extremity 08/12/2023 of unknown [...] comply. She will haver her US in [place] and I will contact nursing there to [...] Assessment & Plan: Has bilateral hearing aids Encounters Date Type Department Care Team Description 08/31/2025 Results Follow-Up Adult Medicine [facility] [address] [place] [address] Gary Beard MD 08/18/2025 9:15 AM EDT - 08/18/2025 11:59 PM EDT Hospital Encounter Ultrasound [address] [place] [phone] Annual physical exam; Varicose veins of both lower extremities, unspecified whether complicated Discharge Disposition: Home or Self Care 07/13/2025 3:00 PM EDT Office Visit [facility] [place] [address] [place] [address] Gary Beard MD Annual physical exam (Primary Dx); Anxiety and depression; Multiple sclerosis (CMS/HCC V24, CMS/HCC V28); Class 2 obesity due to excess calories with body mass index (BMI) of 38.0 to 38.9 in adult, unspecified whether serious comorbidity present; Pure hypercholesterolemia ; Family history of lung cancer; Varicose veins of both lower extremities, unspecified whether complicated from Last 3 Months Immunizations Immunization Administration Dates Next Due Influenza, Unspecified 07/08/2023 Tdap Tetanus diptheria acell ular pertussis (Boostrix; Adacel) 7yo and older 10/24/2019,06/26/2016,01/08/2015 Surgical History Surgery Date Site/Laterality Comments TONSILLECTOMY ADENOIDECTOMY, BILATERAL MYRINGOTOMY AND TUBES PROCEDURE: RI TONSILLECTOMY & ADENOIDECTOMY <AGE 12; COMMENT: HISTORICAL SECTION 2015 PROCEDURE: HISTORICAL DELIVERY CHOLECYSTECTOMY 2009 PROCEDURE: [...] e hypercholesterolemia EtOH dependence (CMS/HCC V24 , CMS/HCC V28) DX:EtOH dependence (HCC); CO MMENT: stopped then no remission resumed in . Recovery 2016 Morbid obesity with BMI of 4 0.0-44.9, adult ([facility] V24, [facility]/HCC V28) 01/31/2016 DX:Morbid obesity wit h BMI of 40.0-44.9, adult ([facility]); COMMENT: Needs anesthesia consult in early 3rd trimester Anxiety 01/03/2016 DX:Anxiety; COMM ENT: Has a therapist from [facility] in [facility]. Also for etoh Family History Medical [...] care for your loved ones. For example, school child care attendant or elderly care for an older adult? [...] Sign Reading Time Taken Comments Blood Pressure 112/81 07/13/2025 2:56 PM EDT Pulse 93 07/13/2025 2:56 PM EDT Temperature 36.2 C (97.1 F) 07/13/2025 2:56 PM EDT Respiratory Rate 12 07/13/2025 2:56 PM EDT Oxygen Saturation - - Inhaled Oxygen Concentration - - Weight 86.6 kg (191 lb) 07/13/2025 2:56 PM EDT Height 149.9 cm (4' 11 ) 07/13/2025 2:56 PM EDT Body Mass Index 38.58 07/13/2025 2:56 PM EDT Plan of Treatment Upcoming Encounters Date Type Department Care Team (Late st Contact Info) Description 07/19/2026 3:00 PM EDT Office Visit Adult Medicine [address] [phone] Gary Beard MD [address] [place] [address] Health Maintenance Due Date Last Done Comments HPV Vaccines (1 - 3-dose SCD M series) 2010 Breast Cancer Screening 11/02/2025 Post poned from 1983 (Patient Refused) COVID-19 Vaccine (3 - 2024-2 6 season) 2025 12/28/2020, 11/30/2020 Postponed from 07/03/2025 (Patient Refused) Cervical Cancer Screening: HPV 11/02/2025 01/23/2015 Postponed from 01/23 (Patient Refused) Hepatitis A Vaccines (1 of 2 - Risk 2-dose series) 11/02/2025 Postponed from (Patient Refused) Hepatitis B Vaccines (1 of 3 - 19+ 3-dose series) 11/02/2025 Postponed from 02/01 (Patient Refused) Pneumococcal Vaccine: Pediatrics (0 to 5 Years) and At-Risk Patients (6 to 49 Years) (1 of 2 - PCV) 11/02/2025 Postponed from (Patient Refused) Influenza Vaccine (#1) 2026 07/08/2023 Postp oned from 07/03/2025 (Patient Refused) Social Influencers of Health Screening 07/13/2026 07/13/2025 DTaP,Tdap,and Td Vaccines (4 - Td or Tdap) 10/24/2029 10/24/2019, 06/26/2016, 01/08/2015 Cholesterol Screening (Lipid Panel) 08/16/2030 08/16/2025, 01/11/2024 RSV Immunization Adult Patients (1 - 1-dose 75+ series) 2058 Hepatitis C Screening Completed 01/29/2015 HIV Screening Completed 12/20/2015 Depression Screening Completed 07/13/2025 HIB Vaccines Aged Out No longer eligi [...] Procedure Name Priority Date/Time Associated Diagnosis Comments VAS US DUPLEX LOWER EXT VENOUS INSUFFICIENCY BILATERAL Routine 08/18/2025 10:08 AM EDT Annual physical exam Varicose veins of both lower extremities, unspecified whether complicated CBC WITH AUTO DIFFERENTIAL Routine 08/16/2025 8:23 AM EDT Annual physical exam CBC AND DIFFERENTIAL Routine 08/16/2025 8:23 AM EDT Annual physical exam COMPREHENSIVE METABOLIC PANEL Routine 08/16/2025 8:23 AM EDT Annual physical exam HEMOGLOBIN A1C Routine 08/16/2025 8:23 AM EDT Annual physical exam LIPID PANEL WITH REFLEX TO DIRECT LDL Routine 08/16/2025 8:23 AM EDT Annual physical exam THYROID STIMULATING HORMONE WITH REFLEX TO FREE T4 AND FREE T3 Routine 08/16/2025 8:23 AM EDT Annual physical exam HEPATITIS B SCREENING PANEL Routine 08/16/2025 8:23 AM EDT Annual physical exam CORTISOL Routine 08/16/2025 8:23 AM EDT Annual physical exam Class 2 obesity due to excess calories with body mass index (BMI) of 38.0 to 38.9 in adult, unspecified whether serious comorbidity present HIV SCREENING Routine 12/20/2015 HEPATITIS C SCREENING Routine 01/29/2015 HPV Routine 01/23/2015 from Last 3 Months or Most Recently Relevant to Health Maintenance Results * Vascular US duplex lower extremity venous insufficiency bilateral (08/18/2025 10:08 AM EDT) Anatomical Region Laterality Modality Vascular, Abdomen Ultrasound 08/23/2025 11:4 8 AM EDT Impressions 08/23/2025 11:55 AM EDT 1. There is no evidence of thrombus in the venous systems of the lower extremities bilaterally. 2. In the right lower extremity, there is significant reflux in the greater saphenous vein in the thigh with duration up to 4.8 seconds and in the calf with duration up to 4.9 seconds. 3. In the left lower extremity, there is significant reflux in the GSV in the thigh with duration up to 4.7 seconds and in the calf with duration up to 2.1 seconds. There is also significant reflux in a bulging vein in the mid to lower calf with duration of 2.1 seconds. 4. A right-sided Garcia's cyst is present, measuring 5.8 x 0.9 x 2.1 cm. Code 98385 -------- FINAL REPORT -------- Dictated By: Ac Minor Dictated Date: 08/23/2025 11:48 ET Assigned Physician: Ac Minor Reviewed and Electronically Signed By: Ac Minor Signed Date: 08/23/2025 11:55 ET Workstation ID: [id number] Transcribed By: Self Edit Transcribed Date: 08/23/2025 11:48 ET Narrative 08/23/2025 11:55 AM EDT HISTORY: The patient is a 40-year-old female with bilateral lower extremity varicose veins. FINDINGS: Real-time ultrasonography of the venous systems of the lower extremities is performed. In the right lower extremity, the common femoral, femoral, and popliteal veins are widely patent, without evidence of thrombus. There is normal compressibility and augmentation. The visualized calf veins, as well as the greater saphenous vein, are patent. The diameter of the greater saphenous vein in the upper thigh is 0.5 cm; in the mid thigh, 0.5 cm; and in the lower thigh, 0.5 cm. There is significant reflux in the greater saphenous vein in the upper thigh with duration of 4.8 seconds; in the mid thigh with duration of 4.6 seconds, and in the lower thigh with duration of 4.8 seconds. There is also significant reflux in the greater saphenous vein in the calf with duration in the upper calf measuring 2.1 seconds; in the mid calf measuring 1.3 seconds; and in the lower calf with duration of 4.9 seconds. A Garcia's cyst is noted measuring 5.8 x 0.9 x 2.1 cm. In the left lower extremity, the common femoral, femoral, and popliteal veins are widely patent, without evidence of thrombus. There is normal compressibility and augmentation. The visualized calf veins, as well as the greater saphenous vein, are patent. The diameter of the greater saphenous vein in the upper thigh is 1.2 cm; in the mid thigh, 1.5 cm; and in the lower thigh, 0.8 cm. There is significant reflux in the greater saphenous vein in the upper thigh with duration of 2.7 seconds; in the mid thigh with duration of 4.7 seconds; and in the lower thigh with duration of 4.2 seconds. There is also significant reflux in the GSV in the upper calf with duration of 2.1 seconds and in the mid calf with duration of 1.7 seconds. There is also significant reflux in a bulging vein in the mid to lower calf with duration of 2.1 seconds. Procedure Note Ac Minor MD - 08/23/2025 HISTORY: The patient is a 40-year-old female with bilateral lowerextremity varicose veins. FINDINGS: Real-time ultrasonography of the venous systems of the lowerextremities is performed. In the right lower extremity, the commonfemoral, femoral, and popliteal veins are widely patent, without evidenceof thrombus. There is normal compressibility and augmentation. Thevisualized calf veins, as well as the greater saphenous vein, are patent.The diameter of the greater saphenous vein in the upper thigh is 0.5 cm;in the mid thigh, 0.5 cm; and in the lower thigh, 0.5 cm. There issignificant reflux in the greater saphenous vein in the upper thigh withduration of 4.8 seconds; in the mid thigh with duration of 4.6 seconds,and in the lower thigh with duration of 4.8 seconds. There is alsosignificant reflux in the greater saphenous vein in the calf with durationin the upper calf measuring 2.1 seconds; in the mid calf measuring 1.3seconds; and in the lower calf with duration of 4.9 seconds. A Garcia'scyst is noted measuring 5.8 x 0.9 x 2.1 cm. In the left lower extremity, the common femoral, femoral, and poplitealveins are widely patent, without evidence of thrombus. There is normalcompressibility and augmentation. The visualized calf veins, as well asthe greater saphenous vein, are patent. The diameter of the greatersaphenous vein in the upper thigh is 1.2 cm; in the mid thigh, 1.5 cm; andin the lower thigh, 0.8 cm. There is significant reflux in the greatersaphenous vein in the upper thigh with duration of 2.7 seconds; in the midthigh with duration of 4.7 seconds; and in the lower thigh with durationof 4.2 seconds. There is also significant reflux in the GSV in the uppercalf with duration of 2.1 seconds and in the mid calf with duration of 1.7seconds. There is also significant reflux in a bulging vein in the mid tolower calf with duration of 2.1 seconds. IMPRESSION: 1. There is no evidence of thrombus in the venous systems of the lowerextremities bilaterally. 2. In the right lower extremity, there is significant reflux in thegreater saphenous vein in the thigh with duration up to 4.8 seconds and inthe calf with duration up to 4.9 seconds. 3. In the left lower extremity, there is significant reflux in the GSV inthe thigh with duration up to 4.7 seconds and in the calf with duration upto 2.1 seconds. There is also significant reflux in a bulging vein in themid to lower calf with duration of 2.1 seconds. 4. A right-sided Garcia's cyst is present, measuring 5.8 x 0.9 x 2.1 cm. Code 34227 -------- FINAL REPORT -------- Dictated By: Ac Minor Dictated Date: 08/23/2025 11:48 ET Assigned Physician: Ac Minor Reviewed and Electronically Signed By: Ac Minor Signed Date: 08/23/2025 11:55 ET Workstation ID: [id number] Transcribed By: Self Edit Transcribed Date: 08/23/2025 11:48 ET Gary Beard MD CV VASCULAR PROCEDURES Nisha l Result * Thyroid stimulating hormone with reflex to free t4 and free t3 (08/16/2025 8:23 AM EDT) Pathologist [facility] TSH 1.31 0.40 - 4.00 mcIU/mL LAB CHEMISTRY METHOD 08/16/2025 11:20 AM EDT [facility] Blood Venous blood specimen / Unknown Venipuncture / Unknown 08/16/2025 8:23 AM EDT 08/16/2025 8:23 AM EDT Gary Beard MD LAB BLOOD ORDERABLES Final Result [facility] [address] [place] [address], [place] [phone] * (ABNORMAL) Lipid panel with reflex to direct LDL (08/16/2025 8:23 AM EDT) Pathologist [facility] Cholesterol 206(H) 0 - 200 mg/dL LAB CHEMISTRY METHOD 08/16/2025 10:28 AM EDT [facility] Triglycerides 88 0 - 150 mg/dL LAB CHEMISTRY METHOD 08/16/2025 10:28 AM EDT [facility] HDL 51 >=40 mg/dL LAB CHEMISTRY METHOD 08/16/2025 10:28 AM EDT [facility] LDL Calculated 137(H) 0 - 100 mg/dL LAB CHEMISTRY METHOD 08/16/2025 10:28 AM EDT [facility] Comment:Estimated LDL Calcul ated using equation: Total cholesterol - HDL cholesterol - (Triglycerides/5) VLDL Cholesterol Kishan 17.6 mg/dL LAB CHEMISTRY METHOD 08/16/2025 10:28 AM EDT [facility] Non HDL Chol. (LDL+VLDL) 155(H) <145 mg/dL LAB CHEMISTRY METHOD 08/16/2025 10:28 AM EDT [facility] Chol/HDL Ratio 4.0 0.0 - 4.4 LAB CHEMISTRY METHOD 08/16/2025 10:28 AM EDT [facility] Blood Venous blood specimen / Unknown Venipuncture / Unknown 08/16/2025 8:23 AM EDT 08/16/2025 8:23 AM EDT Gary Beard MD LAB BLOOD ORDERABLES Final Result [facility] [address] [place] [address], [place] [phone] * Hepatitis B screening panel (08/16/2025 8:23 AM EDT) Pathologist [facility] Hepatitis B Surface Ag Negative Negative LAB CHEMISTRY METHOD 08/16/2025 11:47 AM EDT [facility] Hep B Core Total Ab Negative Negative LAB CHEMISTRY METHOD 08/16/2025 11:47 AM EDT [facility] Hepatitis B Surface Ab Negative Negative LAB CHEMISTRY METHOD 08/16/2025 11:47 AM EDT [facility] Blood Venous blood specimen / Unknown Venipuncture / Unknown 08/16/2025 8:23 AM EDT 08/16/2025 8:23 AM EDT Gary Beard MD LAB BLOOD ORDERABLES Final Result [facility] [address] [place] [address], [place] [phone] * (ABNORMAL) CBC auto differential (08/16/2025 8:23 AM EDT) WBC 7.2 4.8 - 10.8 K/mcL LAB HEMETOLOGY METHOD 08/16/2025 10:13 AM EDT [facility] RBC 5.30(H) 3.80 - 4.80 M/mcL LAB HEMETOLOGY METHOD 08/16/2025 10:13 AM [facility] Hemoglobin 14.9 11.5 - 16.0 g/dL LAB HEMETOLOGY METHOD 08/16/2025 10:13 AM [facility] Hematocrit 44.7 35.0 - 47.0 % LAB HEMETOLOGY METHOD 08/16/2025 10:13 AM [facility] MCV 84.7 79.0 - 98.0 FL LAB HEMETOLOGY METHOD 08/16/2025 10:13 AM [facility] MCH 28.2 27.0 - 32.0 pcg LAB HEMETOLOGY METHOD 08/16/2025 10:13 AM [facility] MCHC 33.3 32.0 - 37.0 g/dL LAB HEMETOLOGY METHOD 08/16/2025 10:13 AM [facility] RDW 13.2 11.0 - 15.0 % LAB HEMETOLOGY METHOD 08/16/2025 10:13 AM [facility] Platelets 312 130 - 400 K/mcL LAB HEMETOLOGY METHOD 08/16/2025 10:13 AM [facility] MPV 9.9 7.0 - 11.0 FL LAB HEMETOLOGY METHOD 08/16/2025 10:13 AM [facility] NRBC 0.0 <1.0 % LAB HEMETOLOGY METHOD 08/16/2025 10:13 AM [facility] NRBC Absolute 0.00 <0.10 K/mcL LAB HEMETOLOGY METHOD 08/16/2025 10:13 AM [facility] Neutrophils Relative 70.8 % LAB HEMETOLOGY METHOD 08/16/2025 10:13 AM [facility] Lymphocytes Relative 19.9 % LAB HEMETOLOGY METHOD 08/16/2025 10:13 AM [facility] Monocytes Relative 5.7 % LAB HEMETOLOGY METHOD 08/16/2025 10:13 AM [facility] Eosinophils Relative 2.8 % LAB HEMETOLOGY METHOD 08/16/2025 10:13 AM [facility] Basophils Relative 0.7 % LAB HEMETOLOGY METHOD 08/16/2025 10:13 AM [facility] Immature Granulocytes Relative 0.1 % LAB HEMETOLOGY METHOD 08/16/2025 10:13 AM [facility] Neutrophils Absolute 5.07 1.50 - 7.00 K/mcL LAB HEMETOLOGY METHOD 08/16/2025 10:13 AM [facility] Lymphocytes Absolute 1.43 1.00 - 5.00 K/mcL LAB HEMETOLOGY METHOD 08/16/2025 10:13 AM [facility] Monocytes Absolute 0.41 0.20 - 1.00 K/mcL LAB HEMETOLOGY METHOD 08/16/2025 10:13 AM [facility] Eosinophils Absolute 0.20 0.00 - 0.50 K/mcL LAB HEMETOLOGY METHOD 08/16/2025 10:13 AM [facility] Basophils Absolute 0.05 0.00 - 0.20 K/mcL LAB HEMETOLOGY METHOD 08/16/2025 10:13 AM [facility] Immature Granulocytes Absolute 0.01 0.00 - 0.03 K/mcL LAB HEMETOLOGY METHOD 08/16/2025 10:13 AM [facility] Blood Venous blood specimen / Unknown Venipuncture / Unknown 08/16/2025 8:23 AM EDT 08/16/2025 8:23 AM EDT us Gary Beard MD LAB BLOOD ORDERABLES Final Result Performing Organization Address City/[facility]/ZIP Co de Phone Number [facility] [address] [place] [address], [place] [phone] * Hemoglobin A1c (08/16/2025 8:23 AM EDT) Hemoglobin A1C 5.0 <6.5 % LAB CHEMISTRY METHOD 08/16/2025 1:09 PM EDT [facility] Mean Bld Glu Estim. 97 mg/dL LAB CHEMISTRY METHOD 08/16/2025 1:09 PM EDT [facility] Blood Venous blood specimen / Unknown Venipuncture / Unknown 08/16/2025 8:23 AM EDT 08/16/2025 8:23 AM EDT Gary Beard MD LAB BLOOD ORDERABLES Final Result Performing Organization Address [facility]/ZIP Co de Phone Number [facility] [address] [place] [address], [place] [phone] * Cortisol (08/16/2025 8:23 AM EDT) Cortisol 19.9 mcg/dL LAB CHEMISTRY METHOD 08/16/2025 11:07 AM EDT [facility] Blood Venous blood specimen / Unknown Venipuncture / Unknown 08/16/2025 8:23 AM EDT 08/16/2025 8:23 AM EDT Narrative [facility] - 08/16/2025 11:07 AM EDT CORTISOL REFERENCE RANGE 8 AM SPEC: 5.0-23.0 mcg/dL 4 PM SPEC: 3.0-16.0 mcg/dL 8 PM SPEC: <5.0 mcg/dL Gary Beard MD LAB BLOOD ORDERABLES Final Result Performing Organization Address City/[facility]/ZIP Co de Phone Number [facility] [address] [place] [address], * (ABNORMAL) Comprehensive metabolic panel (08/16/2025 8:23 AM EDT) Sodium 139 133 - 145 mmol/L LAB CHEMISTRY METHOD 08/16/2025 10:28 AM [facility] Potassium 4.1 3.5 - 5.5 mmol/L LAB CHEMISTRY METHOD 08/16/2025 10:28 AM [facility] Chloride 108 96 - 110 mmol/L LAB CHEMISTRY METHOD 08/16/2025 10:28 AM [facility] CO2 28 21 - 32 mmol/L LAB CHEMISTRY METHOD 08/16/2025 10:28 AM [facility] Anion Gap 3 3 - 11 LAB CHEMISTRY METHOD 08/16/2025 10:28 AM [facility] Glucose 109(H) 70 - 100 mg/dL LAB CHEMISTRY METHOD 08/16/2025 10:28 AM [facility] BUN 14 5 - 25 mg/dL LAB CHEMISTRY METHOD 08/16/2025 10:28 AM [facility] Creatinine 0.71 0.50 - 1.10 mg/dL LAB CHEMISTRY METHOD 08/16/2025 10:28 AM [facility] eGFR 109 >=60 mL/min/1. 73m2 LAB CHEMISTRY METHOD 08/16/2025 10:28 AM [facility] Comment:Calculation based on the Chronic Kidney Disease Epidemiology Collaboration (CKD-EPI) equation refit without adjustment for race. BUN/Creatinine Ratio 19.7 LAB CHEMISTRY METHOD 08/16/2025 10:28 AM [facility] Calcium 9.4 8.5 - 10.5 mg/dL LAB CHEMISTRY METHOD 08/16/2025 10:28 AM [facility] AST (SGOT) 18 10 - 42 unit/L LAB CHEMISTRY METHOD 08/16/2025 10:28 AM [facility] ALT (SGPT) 19 10 - 60 unit/L LAB CHEMISTRY METHOD 08/16/2025 10:28 AM EDT [facility] Alkaline Phosphatase 80 42 - 121 unit/L LAB CHEMISTRY METHOD 08/16/2025 10:28 AM EDT [facility] Total Protein 6.9 6.0 - 8.0 g/dL LAB CHEMISTRY METHOD 08/16/2025 10:28 AM EDT [facility] Albumin 3.9 3.2 - 5.0 g/dL LAB CHEMISTRY METHOD 08/16/2025 10:28 AM EDT [facility] Total Bilirubin 0.6 0.0 - 1.4 mg/dL LAB CHEMISTRY METHOD 08/16/2025 10:28 AM EDT [facility] Blood Venous blood specimen / Unknown Venipuncture / Unknown 08/16/2025 8:23 AM EDT 08/16/2025 8:23 AM EDT Gary Beard MD LAB BLOOD ORDERABLES Final Result [facility] [address] [place] [address], * HIV Screening (12/20/2015) Pathologist [facility] HIV Screening abstracted Historical Provider HEALTH MAINTENANCE Final Result * Hepatitis C Screening (01/29/2015) [facility] Hepatitis C Screening abstracted Historical Provider HEALTH MAINTENANCE Final Result * Cervical Cancer Screening: HPV (01/23/2015) [facility] Cervical Cancer Screening: HPV negative interpretation abstracted Historical Provider HEALTH MAINTENANCE Final Result from Last 3 Months or Most Recently Relevant to Health Maintenance Insurance [employer] [place]ICA[employer] - [place] Care Teams President Ceo & Founder Relationship Specialty Start Date End Date Gary Beard MD [address] [place] [address] PCP - General 08/11/23
== END 2025-09-06 09:58 | disposition home or self-care (01) ==
LOC: HO.HSM 09:30
PROVIDERS: PCP Internal Medicine; Visit Provider Registered Nurse
DX: G35.D Multiple sclerosis, unspecified (principal); G25.81 Restless legs syndrome; F41.8 Other specified anxiety disorders; G43.009 Migraine without aura, not intractable, without status migrainosus; G44.209 Tension-type headache, unspecified, not intractable
CPT/HCPCS: 99214